=== PATIENT | female | born 1940 | race Caucasian/White ===

== ENCOUNTER 2016-09-22 18:21 | Inpatient (IN) | payer MEDICARE, OTHER ==
[~2016-09-22] VITALS: Ht 170.2 cm; Wt 61.2 kg
[~2016-09-22 18:21] MED LIST: ADVAIR 250/501 DISK; CHOLESTROL; KEFLEX500 MG PO; LIPITOR10 MG PO; LUMIGAN 0.01%2.5 ML EACH EYE; VENTOLIN HFA18 GM INH; VITAMIN E400 UNI2 PO
[2016-09-22 19:00] VITALS: BP 150/90
[2016-09-22 19:18] LABS: BASOPHILS 0.2 % (0-2); EOSINOPHILS 2.8 % (0-7); HEMATOCRIT 43.2 % (36.0-48.0); HEMOGLOBIN 14.5 g/dL (12-16); IMMATURE GRANULOCYTES 0.2 % (0-5); LYMPHOCYTES 29.5 % (15-50); MCH 32.8 pg (26.0-34.0); MCHC 33.6 g/dL (31.0-37.0); MCV 97.7 fL (80.0-100.0); MONOCYTES 9.4 % (2-11); NEUTROPHILS 57.9 % (40-80); PLATELET COUNT 188 10x3/uL (130-400); RBC 4.42 10x6/uL (4.00-5.40); RDW 12.7 % (11.5-14.5)
[2016-09-22] MEDS ORDERED: TIMOPTIC 0.5 % O5 ML EACH EYE (19:34)
[2016-09-22] MEDS ORDERED: POTASSIUM99 M1 PO (19:37)
[2016-09-22] MEDS ORDERED: [UNRECOGNIZED DRUG - OTHER] (19:39)
[2016-09-22 19:43] VITALS: BP 150/90; BMI 18.8
--- NOTE | 2016-09-22 19:53 | NUR ---
DR LOPEZ NOTIFIED OF PT UPDATE: THIRD DEGREE HEART BLOCK WITH RATE 39-45. BP 150/90. ASYMPTOMATIC WHILE LYING IN BED, GETS DIZZY UPON STANDING. INSTRUCTED PT ON STRICT BEDREST.
[2016-09-22 20:16] LABS: ALBUMIN 3.3 g/dL (3.4-5.0); ALKALINE PHOSPHATASE 79 U/L (46-116); ALT (SGPT) 34 U/L (10-68); BILIRUBIN - TOTAL 0.19 mg/dL (0.2-1.3); CALC OSMOLALITY 283 mosm/kg (275-300); CARBON DIOXIDE 29.7 mmol/L (21.0-32.0); CHLORIDE - SERUM 105 mmol/L (98-107); CREATINE KINASE 35 UL (21-215); CREATININE - SERUM 1.4 mg/dL (0.6-1.3); GLUCOSE 94 mg/dL (74-106); PROTEIN - SERUM 6.5 g/dL (6.4-8.2); SODIUM 141 mmol/L (136-145); T4 THYROXIN - FREE 1.07 ng/dL (0.76-1.46); UREA NITROGEN 21 mg/dL (7-18); eGFR NON AFRICAN AMERICAN 39 mL/min (90-120)
[2016-09-22 20:18] LABS: TROPONIN-I < 0.017 ng/mL (0.000-0.060)
[2016-09-23] VITALS: BP 135/61
--- NOTE | 2016-09-23 00:05 | NUR ---
MULTISKILL OPERATOR AT BEDSIDE FOR VS. NEEDS ADDRESSED AT THIS TIME. CALL LIGHT IN REACH. WILL CONT TO MONITOR.
[2016-09-23 01:56] LABS: CKMB 0.9 U/L (0.0-3.6); CREATINE KINASE 28 UL (21-215)
[2016-09-23 01:58] LABS: TROPONIN-I < 0.017 ng/mL (0.000-0.060)
[2016-09-23 05:38] VITALS: BP 131/51
[2016-09-23 07:20] LABS: CKMB 0.7 U/L (0.0-3.6); CREATINE KINASE 45 UL (21-215); TROPONIN-I < 0.017 ng/mL (0.000-0.060)
--- NOTE | 2016-09-23 08:18 | HP ---
PATIENT: CONSTANCE MOHAMUD MEDICAL RECORD: [id number] ACCOUNT: [id number] LOCATION:[address] : 41 ADMISSION DATE: 09/22/16 HISTORY AND PHYSICAL EXAMINATION Admission History and Physical DATE OF ADMISSION: 09/22/2016 CHIEF COMPLAINT: Dizziness. HISTORY OF PRESENT ILLNESS: This 76-year-old female, has not been in my office and has not seen me in almost 2 years. She did see my nurse practitioner once last November. She comes in with acute onset of dizziness that she states has been going on for the last couple of days. If she siting still, she is okay, but if she gets up to try to move, she becomes dizzy and unsteady on her feet. She has not fallen, but she is using handrails everywhere she goes. A friend of hers who is a nurse came by to check on her, check her vital signs. Her blood pressure was doing okay, but her heart rates were down to 30s. When I saw her in the office, her heart rate was about 40. She is not on any medicine for blood pressure. She is on 2 eyedrops, the last of which was Timolol, which she states was started about the middle of May this year. With her symptomatic bradycardia, admitted her in to [place] for further evaluation and cardiac consultation. PAST MEDICAL HISTORY AND PAST SURGICAL HISTORY: She has a history of COPD, but on no medicines for that. She has glaucoma. She has history of hyperlipidemia. She has had some lumbar disc disease in the past. She had back surgery by Dr. Andujar back in the early . ALLERGIES: CLINDAMYCIN, LESCOL, PENICILLIN AND PRAVASTATIN. CURRENT MEDICATIONS: Includes: Timolol 0.5% ophthalmic drops 1 drop at each eye once a day, Lumigan 0.01% eyedrops 1 drop in each eye at bedtime. She takes an aspirin and vitamin E, qhkz-psk-earagmv potassium pills daily. SOCIAL HISTORY: She is and retired. HABITS: She is a current everyday smoker. She does use not use alcohol. She is retired. FAMILY HISTORY: Father at 42 of ID. Mother with history, she too is , and she had a history of coronary artery disease. REVIEW OF SYSTEMS: GENERAL: No major weight changes. HEENT: No particular sinus or allergy problems. RESPIRATORY: She is a long time smoker and has COPD, but on no medicines for it. CARDIAC: No history of chest pain, palpitations, bradycardia. GASTROINTESTINAL: She has had a few episodes of heartburn. GENITOURINARY: No significant problems there. MUSCULOSKELETAL: Few joint aches and pains. NEUROLOGIC: No seizures or migraine headaches. PSYCHIATRIC: Denies depression or melancholia. HISTORY AND PHYSICAL [id number] CONSTANCE MOHAMUD PHYSICAL EXAMINATION: VITAL SIGNS: In my office, basically her heart rate was around 40. Currently, temperature is 97.3, pulse 45, respirations 16, blood pressure 150/90 and O2 sat 94%. She does not appear in acute distress. HEENT: Grossly within normal limits. NECK: Supple. No JVD or bruits. HEART: Bradycardia, without murmur. LUNGS: Fairly clear. ABDOMEN: Soft. EXTREMITIES: No edema. When she got up to walk in my office, she would become dizzy. LABORATORY DATA: Tonight, CBC is essentially normal. Comprehensive metabolic panel is okay except BUN and creatinine are mildly elevated at 21 and 1.4 respectively. Total bilirubin is low at 0.19, AST is high at 63, ALT normal at 34. Cardiac enzymes, first set is negative. TSH 3.00. Free T4 of 1.07. IMAGING: Chest x-ray is done showing no acute findings. ASSESSMENT: Symptomatic bradycardia. PLAN: This could be from timolol eyedrops that was started about 3 months ago. We will hold those drops right now. She is placed on telemetry. I discussed the case with Dr. Han and he will see her in consultation. Other tests and procedures as warranted. TRANSINT:[id number] Voice Confirmation ID: [id number] DOCUMENT ID: [id number] SABINE HUTSON MD at 0818 CC: [id number] DICTATION DATE: 09/22/162214 RN ENT: 09/23/16 0130 ADM IN [address] [id number] [place] [address]
--- NOTE | 2016-09-23 09:46 | NUR ---
ALLYSON SHELTON PLACED PT BILAT SCDS ON, PATENT
[2016-09-23 12:00] VITALS: BP 142/68
[2016-09-23 14:35] VITALS: Ht 170.2 cm; Wt 61.2 kg
--- NOTE | 2016-09-23 15:01 | NUR ---
TELEMETRY SB. CALL LIGHT IN REACH. WILL CONT. TO MONITOR NEEDS.
[2016-09-23 16:28] VITALS: BP 150/62
--- NOTE | 2016-09-23 19:00 | NUR ---
INITIAL ROUNDS MADE. PT SITTING UP IN BED WATCHING TV. NO NEEDS OR C/O VOICED AT THIS TIME. CALL LIGHT IN REACH. WILL CONT TO MONITOR.
[2016-09-23 20:00] VITALS: BP 154/62
[2016-09-24] VITALS: BP 155/45
[2016-09-24 04:00] VITALS: BP 122/43
--- NOTE | 2016-09-24 04:39 | NUR ---
CODE ENFORCEMENT SUPERVISOR AT BEDSIDE FOR VS. NEEDS ADDRESSED AT THIS TIME. CALL LIGHT IN REACH. WILL CONT TO MONITOR.
[2016-09-24 08:33] VITALS: BP 152/60
--- NOTE | 2016-09-24 09:55 | NUR ---
Patient Name: CONSTANCE MOHAMUD Admission Status: Elective Accout number: [id number] Admission Date: 09-22-2016 : 1940 Admission Diagnosis:DIZZINESS AND GIDDINESS Attending: NKECHI Current LOS: 2 Anticipated DC Date: 09-24-2016 Planned Disposition: Home Primary Insurance: MEDICARE A & B Discharge Planning Comments: * Is the patient Alert and Oriented? Yes 0 * How many steps to enter\exit or inside your home? 3 0 * PCP DR. HUTSON 0 * Pharmacy BUDGET 0 * Preadmission Environment Home Alone 0 * ADLs Independent 0 * Equipment Cane Walker Wheelchair 0 * Other Equipment NO MEDICAL EQUIPMENT PROVIDER PREFERENCE 0 * List name and contact numbers for known caregivers / representatives who currently or will assist patient after discharge: JUN GANDHI, FRIEND, 0 * Community resources currently utilized None 0 * Please name any agencies selected above. NONE 0 * Additional services required to return to the preadmission environment? No 0 * Can the patient safely return to the preadmission environment? Yes 0 * Has this patient been hospitalized within the prior 30 days at any hospital? No 0 CM MET WITH PT IN ROOM TO DISCUSS DISCHARGE PLANNING AND NEEDS. PT REPORTS LIVING AT HOME INDEPENDENTLY AND ALONE. PT HAS CANE, WALKER AND WHEELCHAIR THAT SHE HAS FROM HER SPOUSE AND NO MEDICAL EQUIPMENT PROVIDER PREFERENCE. PT HAS NO OUTSIDE SERVICES ASSISTING IN THE HOME. CM DISCUSSED AVAILABILITY OF HOME HEALTH, REHAB SERVICES AND MEDICAL EQUIPMENT. PT DENIES DISCHARGE NEEDS, REPORTS HER FRIEND WILL PICK HER UP FOR DISCHARGE HOME TODAY. IMPORTANT MESSAGE FROM MEDICARE PROVIDED AND EXPLAINED. Arc And Gas Welder: Soy Acosta
--- NOTE | 2016-09-24 10:33 | NUR ---
IV AND TELEMETRY DCD. DC PLANS GIVEN. UNDERSTANDING VOICED. ESCORTED TO CAR BY W/C.
== END 2016-09-24 10:51 | disposition home or self-care (01) | DRG 310 ==
LOC: D.M2 18:21
PROVIDERS: ADMIT Family Medicine
DX: I44.1 Atrioventricular block, second degree (principal); R00.1 Bradycardia, unspecified; T44.7X5A Adverse effect of beta-adrenoreceptor antagonists, initial encounter; E78.5 Hyperlipidemia, unspecified; H40.9 Unspecified glaucoma; J44.9 Chronic obstructive pulmonary disease, unspecified; Z72.0 Tobacco use; R55 Syncope and collapse

== ENCOUNTER 2016-10-20 09:59 | Outpatient (CLI) | payer MEDICARE, OTHER ==
[~2016-10-20] VITALS: Ht 170.2 cm; Wt 58.0 kg
--- NOTE | ~2016-10-20 | HEMODYNAMI ---
PATIENT:CONSTANCE MOHAMUD MEDICAL RECORD: [id number] : 42 LOCATION:DDARRION ADMISSION DATE: 10/20/16 Generatedon:10/20/201614:23 Patient name: CONSTANCE MOHAMUD Patient #: [id number] SSN: [id number] : 1940 Date of study: 10/20/2016 Page: Of Hemodynamic Procedure Report Patient Data Patient Demographics Procedure consent was obtained First Name: CONSTANCE Gender: Female Last Name: CADE : 1940 [facility] Initial: ESTUARDO Age: 76 year(s) Patient #: [id number] Race: SSN: [id number] Additional ID: [id number] Contact details [address]: [address] [place] [address] State: [place] City: [place] Zip code: [address] Past Medical History Allergies Allergen Reaction Date Comments Reported Other allergy 10/20/2016 PCN, Clindamycin, Pravastatin, Lescol Admission Admission Data Admission Date: 10/20/2016 Admission Time: 9:59 Lab Results Lab Result Date: 10/20/2016 Lab Result Time: 0:00 Biochemistry Name Units Result Min Max BUN mg/dl 15 --(--*-)-- 7 18 Creatinine mg/dl 1.5 --(----)-* 0.6 1.3 CBC Name Units Result Min Max Hemoglobin g/dl 15.1 --(-*--)-- 13.5 17.5 Procedure Procedure Types Cath Procedure Diagnostic Procedure PPM/ICD PPM Dual Implant Miscellaneous Procedures Moderate Sedation up to 15 minutes Procedure Description Procedure Date Procedure Date: 10/20/2016 Procedure Start Time: 13:25 Procedure End Time: 14:19 Procedure Staff Name Function Rohan Melara MD Performing Physician Vinay Martinez MD Assisting physician Ange Richard RT Scrub Martin Chowdhury RN Nurse Cat Andujar RT Monitor Indication Bradycardia Procedure Data Cath Procedure Fluoroscopy Diagnostic fluoroscopy Total fluoroscopy Time: 3.6 time: 3.6 min min Diagnostic fluoroscopy Total fluoroscopy dose: dose: 21.45 mGy 21.45 mGy Estimated blood loss: 10 ml Procedure Complications No complications Procedure Medications Medication Administration Route Dosage Oxygen 2 l/min Lidocaine 1% with added to field 20 ml Epi Bupivacaine 0.5% 10 ml Vancomycin I.V.P.B 1 g Vancomycin Topical 1 g Irrigation Versed I.V. 1 mg Fentanyl I.V. 50 mcg Versed I.V. 1 mg Fentanyl I.V. 50 mcg Hemodynamics Rest HGB: 15.1 (g/dl) Heart Rate: 47 (bpm) Snapshots Pre Cath Intra NCS Post Cath Vital Signs Time Heart Resp SPO2 NIBP (mmHg) Rhythm Pain Sedation Rate (ipm) (%) Status Level (bpm) 12:48:38 52 22 96 192/67(116) NSR 0 (11) 10(A) , No pain 12:53:06 52 25 96 179/78(103) NSR 0 (11) 10(A) , No pain 12:57:31 52 20 94 166/72(123) NSR 0 (11) 10(A) , No pain 13:02:48 52 19 95 152/56(88) NSR 0 (11) 10(A) , No pain 13:07:14 53 16 96 146/61(91) NSR 0 (11) 10(A) , No pain 13:11:30 57 19 96 144/64(106) NSR 0 (11) 10(A) , No pain 13:15:52 55 17 97 137/62(102) NSR 0 (11) 10(A) , No pain 13:20:12 58 16 96 131/58(92) NSR 0 (11) 10(A) , No pain 13:27:58 69 18 95 134/56(89) NSR 0 (11) 10(A) , No pain 13:32:11 46 15 93 126/53(112) NSR 0 (11) 10(A) , No pain 13:36:29 48 15 95 124/58(110) NSR 0 (11) 10(A) , No pain 13:40:46 57 18 96 126/58(118) NSR 0 (11) 10(A) , No pain 13:45:02 60 15 99 129/59(88) NSR 0 (11) 10(A) , No pain 13:49:59 63 15 98 137/63(92) NSR 0 (11) 10(A) , No pain 13:54:17 71 16 100 142/69(103) NSR 0 (11) 10(A) , No pain 13:58:41 70 16 100 151/58(110) NSR 0 (11) 10(A) , No pain 14:03:07 73 19 100 143/58(95) NSR 0 (11) 10(A) , No pain 14:07:29 63 21 100 147/62(111) NSR 0 (11) 10(A) , No pain 14:11:52 73 19 100 154/65(98) NSR 0 (11) 10(A) , No pain 14:16:14 72 16 99 150/63(91) NSR 0 (11) 10(A) , No pain Medications Time Medication Route Dose Verified Delivered Reason Notes Effectiv eness by by 12:48:59 Oxygen NC- prn 2 Rohan Moodyie used for for sat l/min [facility] Alex[facility] Chowdhury headwaitress below MD 92 12:49:06 Lidocaine added 20 ml Rohan Madrigal for local 1% with Epi to [facility] anesthetic field MD LYNN 12:49:24 Bupivacaine on 10 ml Rohan Rohan for local 0.5% field [facility] John anesthetic MD LYNN 12:49:32 Vancomycin I.V.P.B 1 g Rohan Uriosteguiie Per [facility] Alex[facility] Chowdhury RN physician 13:20:14 Vancomycin Topical 1 g Rohan Uriosteguiie used for Irrigation [facility] Alexey Chowdhury RN procedure 13:25:21 Versed I.V. 1 mg Rohan [address]ie for [facility] Alexey Chowdhury RN sedation 13:25:27 Fentanyl I.V. 50 Rohan Uriosteg[address]ie for mcg [facility] Alexey Chowdhury RN sedation 13:30:15 Versed I.V. 1 mg Rohan Uriosteguiie for [facility] Alex[facility] Chowdhury RN sedation 13:30:18 Fentanyl I.V. 50 Rohan [address] for m[address] [facility] Alexey Chowdhury RN sedation Procedure Log Time Note 12:27:40 Informed consent obtained and on chart 12:27:47 Diagnostic Cath Status : Elective 12:28:20 Indication : Bradycardia 12:28:24 Martin Chowdhury RN sent for patient. Start room use. 12:28:25 Time tracking: Regular hours 12::30 Plan of Care:Hemodynamics will remain stable., Cardiac rhythm will remain stable., Comfort level will be maintained., Respiratory function will remain adequate., Patient/ family verbilizes understanding of procedure., Procedure tolerated without complication., Recovers from procedure without complications.. 12:30:32 Lab Result : BUN 15 mg/dl 12::32 Lab Result : Hemoglobin 15.1 g/dl 12::32 Lab Result : Creatinine 1.5 mg/dl 12:41:27 Patient received from Pre/Post Procedure Room to CCL 3 Alert and oriented. Tansferred to table in Supine position. 12:41:28 Warm blankets applied, and taylor hugger turned on for patient comfort. 12::28 Correct patient and procedure confirmed by team. 12:41:30 ECG and BP/O2 sat monitors applied to patient. 12:46:06 Vital chart was started 12:46:48 H&P Date Dictated: 10/15/2016 Within 30 days and on chart., H&P Addendum completed by physician on day of procedure. (MUST COMPLETE FOR ALL OUTPATIENTS). 12:46:49 Pre-procedure instructions explained to patient. 12:46:53 Family in waiting room. 12:46:54 Patient NPO since Midnight. 12:47:27 Patient allergic to Other allergyPCN, Clindamycin, Pravastatin, Lescol 12:47:31 Baseline sample Acquired. 12:47:44 Rhythm: sinus rhythm 12:47:47 Is the patient allergic to Iodine/contrast media? No. 12:47:55 Is patient on blood thinner?No 12:47:59 Patient diabetic? No. 12:48:08 Snore? Yes 12:48:10 Sleep apnea? No 12:48:18 Dentures? Yes in tight 12:48:39 IV patent on arrival in left forearm with 0.9% NaCl at KVO. 12:48:50 Lab results completed and on chart. 12:48:57 Left chest area was prepped with chlora-prep and draped in sterile fashion 12:48:59 Oxygen 2 l/min NC- prn for sat below 92 was administered by Martin Chowdhury RN; used for procedure; 12:48:59 Alarms reviewed by R. N. 12:48:59 Sharps counted by scrub and verified by R.N. 12:49:01 Physician paged 12:49:06 Lidocaine 1% with Epi 20 ml added to field was administered by Rohan Melara MD; for local anesthetic; 12:49:24 Bupivacaine 0.5% 10 ml on field was administered by Rohan Melara MD; for local anesthetic; 12:49:32 Vancomycin 1 g I.V.P.B was administered by Martin Chowdhury RN; Per physician; 13:02:10 Use device set Pacemaker Set 13:03:04 Medtronic enrollment representative Jered present for procedure. 13:03:13 Grounding pad site Left thigh. 13:03:19 Grounding pad site free from injury. 13:03:45 Pre sharps counted by scrub and verified by RN: Sutures: 14 Sponges: 5 Stick needles: 1 Skin needles: 1 Blade: 1 Cautery: 1 13:04:29 Mepilex Dressing opened to sterile field. 13:04:30 2.0 Ticron Multipack opened to sterile field. 13:04:40 3.0 Vicryl Multipack [id number] opened to sterile field. 13:04:41 5.0 Monocryl PS2 [id number] opened to sterile field. 13:04:43 Immobilizer Sling Medium opened to sterile field. 13:07:56 7Fr Safe Sheath opened to sterile field. 13:07:57 7Fr Safe Sheath opened to sterile field. 13:20:14 Vancomycin Irrigation 1 g Topical was administered by Martin Chowdhury RN; used for procedure; 13:22:30 Physician arrived 13:24:40 --------ALL STOP TIME OUT------ 13:24:42 Final Timeout: patient, procedure, and site verified with staff and physician. All members of the team are in agreement. 13:25:12 Left chest site verified by team. 13:25:18 Physical assessment completed. ASA score P 2 - A patient with mild systemic disease as per Vinay Martinez MD. 13:25:21 Versed 1 mg I.V. was administered by Martin Chowdhury RN; for sedation; 13:25:22 Sedation plan: IV Moderate Sedation Versed, Fentanyl 13:25:27 Fentanyl 50 mcg I.V. was administered by Martin Chowdhury RN; for sedation; 13:25:36 Procedure started. 13:25:36 Full Disclosure recording started 13:25:46 Lidocaine 2% to left subclavicular area by Vinay Martinez MD. 13:26:10 Incision made to left subclavicular area. 13:26:57 Generator pocket made/opened. 13:30:15 Versed 1 mg I.V. was administered by Martin Chowdhury RN; for sedation; 13:30:18 Fentanyl 50 mcg I.V. was administered by Martin Chowdhury RN; for sedation; 13:32:52 Left subclavian vein accessed with 7Fr Safe Sheath. 13:32:57 Ventricular lead inserted and advanced. 13:40:40 Peel-a-way sheath was split and removed. 13:44:53 Left subclavian vein accessed with 7Fr Safe Sheath. 13:45:00 Atrial lead inserted and advanced. 13:48:33 Peel-a-way sheath was split and removed. 13:56:32 Ventricular lead was repositioned by dr. Melara 13:57:47 Ventricular lead attachment was completed with 2-0 silk. 13:58:15 Atrial lead attachment was completed with 2-0 silk. 13:59:47 PPM Dual was attached to lead(s) and inserted into pocket. 13:59:52 PPM Dual was inserted subcutaneously to left chest. 13:59:55 Device pocket was irrigated with Vancomycin. 14:00:18 Generator was sutured in place with 2-0 silk. 14:01:38 Medtronic 4074-52 PPM Lead opened to sterile field. 14:01:39 Medtronic 4574-45 PPM Lead opened to sterile field. 14:01:40 Medtronic Adapta PPM Dual Generator opened to sterile field. 14:02:57 Parameters-- Generator: Mode: AAIR<=>DDDR. Lower Rate: 60bpm. Upper Rate: 130bpm. 14:04:09 Parameters--Atrial P/R Wave: 4.8mV. Current: 1.2mA; Threshold: 1.2V; Impedence: 855OHMS. 14:05:46 Parameters--Ventricular P/R Wave: 8.2mV. Current: 1.2mA; Threshold: .5V; Impedence: 1254OHMS. 14:06:12 Subcutaneous closure was completed with 3-0 vicryl. 14:06:28 Skin closure was completed with 5-0 monocryl. 14:08:01 Lt Chest incision was dressed with Mepilex dressing. 14:14:19 Procedure ended.(Physican Out) 14:14:56 Fluoroscopy time 03.60 minutes. 14:15:07 Fluoroscopy dose: 21.45 mGy 14:15:07 Flurop Dose total: 21.45 14:15:10 Sharps counted by scrub and verified by R.N. 14:15:40 Insertion/operative site no bleeding no hematoma. 14:16:04 Post-op/insertion site Left Subclavian vein dressed using a Mepilex dressing. 14:16:14 Post Procedure Pulses reassessed and unchanged 14:16:20 Post-procedure physical assessment completed. ASA score P 2 - A patient with mild systemic disease as per Rohan Melara MD. 14:16:24 Post procedure rhythm: paced 14:16:26 Estimated blood loss: 10 ml 14:16:28 Post procedure instruction explained to patient.Patient verbalizes understanding. 14:16:47 Procedure type changed to Cath procedure, Diagnostic procedure, PPM/ICD, PPM Dual Implant, Miscellaneous Procedures, Moderate Sedation up to 15 minutes 14:16:48 Procedure and supply charges have been captured, reviewed, submitted and are correct. 14:19:08 Procedure Complication : No complications 14:19:12 Vital chart was stopped 14:19:14 See physician's report for complete and final results. 14:19:22 Report given to [facility]. 14:19:25 Patient transfered to [facility] with Bed. 14:19:28 Procedure ended. 14:19:28 Full Disclosure recording stopped 14:19:32 End room use (Document Last) Device Usage Item Name Manufacture Quantity Catalog Hospital Part Current Minimal Lot# / Number Charge Number Stock Stock Serial# Code Mepilex Cardinal 1 [id number] 889127 453017 579365 5 Dressing Health 2.0 Ticron Ethicon 9 [id number] 310419 63377 439213 5 Multipack 3.0 Vicryl Ethicon 1 [id number] 286891 225922 5 Multipack [id number] 5.0 Ethicon 1 [id number] 769176 836610 964300 5 Monocryl PS2 Y495G Immobilizer Cardinal 1 [id number] 451183 467302 196364 5 Sling Health Medium 7Fr Safe Microtek 2 SU7 [id number] 079453 [id number] 10 3[employer] Medtronic Medtronic 1 4074-52 620539 134627 5 4074-52 PPM [id number] Lead 04/17 Medtronic Medtronic 1 4574-45 102454 622825 5 4574-45 PPM [id number] Lead 02/02 Medtronic Medtronic 1 [id number] 388297 5 Adapta PPM [id number] Dual 03/19 Generator 01/01 Signature Audit [place] Stage Time Signature Unsigned Intra-Procedure 10/20/2016 Cat Andujar 2:23:15 PM RT(R) Signatures Monitor : Cat Andujar Signature : RT Date : Time : [address] [address]
[~2016-10-20 09:59] MED LIST changes: +POTASSIUM99 M1 PO; +TIMOPTIC 0.5 % O5 ML EACH EYE; +[UNRECOGNIZED DRUG - OTHER]
[2016-10-20 10:21] VITALS: BP 166/62; BMI 20.1
[2016-10-20 10:37] LABS: HEMATOCRIT 44.9 % (36.0-48.0); HEMOGLOBIN 15.1 g/dL (12-16); MCH 32.5 pg (26.0-34.0); MCHC 33.6 g/dL (31.0-37.0); MCV 96.8 fL (80.0-100.0); MEAN PLATELET VOLUME 11.3 fL (7.4-10.4); RBC 4.64 10x6/uL (4.00-5.40); RDW 12.6 % (11.5-14.5); WBC 8.7 10x3/uL (4.8-10.8)
[2016-10-20 10:41] LABS: ANION GAP 13.6 mmol/L (8-16); APTT 24.4 SECONDS (22.8-39.4); CALCIUM 9.8 mg/dL (8.5-10.1); CARBON DIOXIDE 26.3 mmol/L (21.0-32.0); CREATININE - SERUM 1.5 mg/dL (0.6-1.3); INR 0.91 (0.85-1.17); POTASSIUM - SERUM 3.9 mmol/L (3.5-5.1); PROTIME 12.1 SECONDS (11.6-15.0)
--- NOTE | 2016-10-20 14:58 | NUR ---
RECIEVED FROM PROBATION AGENT. VS WNL. LEFT CHEST DRSG CLEAN AND DRY. LEFT ARM IN SLING. CALL LIGHT IN REACH. WILL CONT. PLAN OF CARE.
[2016-10-20 15:00] VITALS: BP 121/79; Ht 170.2 cm; Wt 58.0 kg
[2016-10-20 16:28] VITALS: BP 121/79
--- NOTE | 2016-10-20 19:00 | NUR ---
INITIAL ROUNDS MADE. PT SITTING UP IN BED WATCHING TV. DENIES NEEDS OR C/O AT THIS TIME. LEFT CHEST WALL PM SITE CDI. SLING IN PLACE. PT C/O DISCOMFORT TO SITE, ICE PACK PLACED AT THIS TIME.
[2016-10-20 21:46] VITALS: BP 154/56
--- NOTE | 2016-10-20 22:42 | OP ---
PATIENT NAME: CONSTANCE MOHAMUD MEDICAL RECORD: [id number] :[birth year] LOCATION:D. D.2118 ADMISSION DATE: SURGEON: GHISLAINE PÉREZ MD DATE OF OPERATION: 10/20/2016 SURGEON: Ghislaine Pérez MD PREOPERATIVE DIAGNOSIS: Arrhythmia. POSTOPERATIVE DIAGNOSIS: Arrhythmia. PROCEDURE PERFORMED: 1. Insertion of a pacemaker on the left chest wall. 2. Immediate interpretation of fluoroscopy. ANESTHESIA: Total intravenous anesthesia. COMPLICATIONS: None. SPECIMENS: None. Case was clean. OPERATIVE COURSE: After consent was obtained, the patient was placed on the fluoroscopy table on the cardiac microbiology lab analyst. A 25 cc of local anesthetic were injected in the left chest wall. Skin incisions was made with a 15 blade scalpel. Dissection continued to the level of the pectoralis fascia using electrocautery. A generous pocket was created using combination of blunt dissection and electrocautery. The left subclavian vein was cannulated on the first pass. Under direct fluoroscopy, a guidewire was advanced at the atriocaval junction. The needle was removed. The dilator and breakaway sheath were passed over the wire under fluoroscopy. The dilator and wire were removed. At this time, Dr. Melara placed the ventricular lead, please see his procedure note. Once it was in placed, It was secured to the pectoralis fascia using 3-0 Ti-Cron suture. A second needle stick was then performed. The left subclavian vein was cannulated the second time. In the fluoroscopy, a wire was placed through the needle and advanced to the atriocaval junction. The needle was removed. The dilator and breakaway sheath were passed over the wire in a standard Seldinger fashion. The dilator and wire were removed. The atrial lead was then placed by Dr. Melara. Please see procedure note. The lead was secured to the pectoralis fascia using 3-0 Ti-Cron suture. Next, the wires were wrapped and secured to the pectoralis fascia. The pacemaker placed in the subcutaneous pocket. The subcutaneous tissue was closed with 3-0 Vicryl sutures. Skin was closed with 4-0 Monocryl, Mastisol and Steri-Strips. At the end of the case, all needle and instruments were correct. No complications occurred. The patient was transferred to recovery room in satisfactory condition. TRANSINT:[id number] Voice Confirmation ID: [id number] DOCUMENT ID: [id number] OPERATIVE REPORT [id number] CONSTANCE MOHAMUD,GHISLAINE Castrejon MD at 2242 CC: [id number] DICTATION DATE: 10/20/161422 AGRICULTURAL CROP FARM MANAGER: 10/20/169 REG [facility] [address] [id number]
[2016-10-21 01:37] VITALS: BP 156/62
[2016-10-21 05:32] VITALS: BP 129/53
[2016-10-21 09:28] VITALS: BP 150/51
--- NOTE | 2016-10-21 09:47 | OP ---
PATIENT NAME: GWENDOLYN HANCOCK MEDICAL RECORD: [id number] :42 LOCATION:D.M2 D.2118 ADMISSION DATE: SURGEON: MILTON DUFFY MD DATE OF OPERATION: 10/20/2016 PROCEDURE: Lead portion of permanent pacemaker placement. INDICATION: Complete heart block. DESCRIPTION OF PROCEDURE: After left subclavian was cannulated via the modified Seldinger technique via Dr. Martinez, first under fluoroscopic guidance, I placed the RV lead in RV apex. Next, after adequate R waves and thresholds were obtained under fluoroscopic guidance, I then placed the right atrial lead in the right atrial appendage without difficulty. After adequate thresholds and P waves were obtained, the lead was attached to appropriate poles of the generator and the pocket was closed via Dr. Martinez. IMPRESSION: Successful lead portion of permanent pacemaker placement on Ms. Gwendolyn Hancock. COMPLICATIONS: None. DISPOSITION: To the floor, stable. ESTIMATED BLOOD LOSS: Minimal. TRANSINT:[id number] Voice Confirmation ID: [id number] DOCUMENT ID: [id number] MILTON DUFFY MD at 0947 CC: [id number] DICTATION DATE: 10/20/16 1404 SMASHER: 10/20/16 2203 REG [facility] [address] [place] [address]
--- NOTE | 2016-10-21 10:21 | NUR ---
IV AND TELEMETRY DCD. DC PLANS GIVEN. UNDERSTANDING VOICED. ESCORTED TO CAR BY W/C.
--- NOTE | 2016-10-23 14:39 | DS ---
PATIENT:CONSTANCE MOHAMUD :42 MEDICAL RECORD: [id number] DISCHARGE SUMMARY ADMISSION DATE: 10/20/16 DISCHARGE DATE: 10/21/16 PROBLEM LIST: Mobitz II heart block, status post permanent pacemaker placement. BRIEF HISTORY AND HOSPITAL COURSE: Admitted as an outpatient for permanent pacemaker placement, surgeon was Dr. Martinez, network operations manager was [facility]. Did require postoperative interrogation, threshold with good interrogation next day. Discharged home in good condition. FOLLOWUP: Follow up in clinic in one month. ACTIVITIES: As tolerated, sling for 2 weeks. DIET: AHA diet. TRANSINT:[id number] Voice Confirmation ID: [id number] DOCUMENT ID: [id number] MILTON DUFFY MD at 1439 CC: [id number] DICTATION DATE: 10/21/16921 GRAPPLE SKIDDER OPERATOR: 10/22/16 0138 DEP CLI 10/21/[address] [address]
== END 2016-10-21 10:23 | disposition home or self-care (01) ==
LOC: D.CATH 09:59 → D.M2 14:53 → D.CATH 10-21 10:23
PROVIDERS: Internal Medicine Interventional Cardiology
DX: I44.2 Atrioventricular block, complete (principal)

== ENCOUNTER 2018-05-31 09:17 | Outpatient (CLI) | payer MEDICARE, BC ==
[~2018-05-31] VITALS: Ht 170.2 cm; Wt 53.6 kg
--- NOTE | ~2018-05-31 | HEMODYNAMI ---
PATIENT:CONSTANCE MOHAMUD MEDICAL RECORD: [id number] : 42 [id number] ADMISSION DATE: 05/31/18 Generatedon:05/31/201812:41 Patient name: CONSTANCE MOHAMUD Patient #: [id number] SSN: [id number] : 1940 Date of study: 05/31/2018 Page: Of Hemodynamic Procedure Report Patient Data Patient Demographics Procedure consent was obtained First Name: CONSTANCE Gender: Female Last Name: CADE : 1940 [facility] Initial: ESTUARDO Age: 78 year(s) Patient #: [id number] Race: SSN: [id number] Additional ID: [id number] Contact details Address: [address] [place] [address] State: [place] City: [place] Zip code: [address] Past Medical History Allergies Allergen Reaction Date Comments Reported Other allergy 10/20/2016 PCN, Clindamycin, Pravastatin, Lescol Admission Admission Data Admission Date: 05/31/2018 Admission Time: 9:17 Lab Results Lab Result Date: 05/31/2018 Lab Result Time: 0:00 Biochemistry Name Units Result Min Max BUN mg/dl 14 --(--*-)-- 7 18 Creatinine mg/dl 1.6 --(----)-* 0.6 1.3 Glucose mg/dl 89 --(-*--)-- 74 106 Troponin l ng/ml 0.017 --(-*--)-- 0 0.06 CBC Name Units Result Min Max Hematocrit % 41.3 -*(----)-- 42 54 Hemoglobin g/dl 13.8 --(*---)-- 13.5 17.5 Platelets 10^3/l 172 --(*---)-- 130 400 WBC 10^3/l 7.5 --(-*--)-- 4.8 10.8 Procedure Procedure Types Cath Procedure Diagnostic Procedure [facility] w/Coronaries PCI Procedure Coronary Stent Coronary Stent Initial x2 Procedure Description Procedure Date Procedure Date: 05/31/2018 Procedure Start Time: 12:23 Procedure End Time: 12:41 Procedure Staff Name Function Oswaldo Peterson MD Performing Physician Ange Richard RT Scrub Mary Sylvester RN Nurse Magdaleno Marc RN Patrol Community Service Officer Lyndsey Albarado RT Monitor Procedure Data Cath Procedure Fluoroscopy Diagnostic fluoroscopy Total fluoroscopy Time: 3.7 time: 3.7 min min Diagnostic fluoroscopy Total fluoroscopy dose: 168 dose: 168 mGy mGy Contrast Material Contrast Material Type Amount (ml) Isovue 300 101 Entry Location Entry Primary Successful Side Size Upsize Upsize Entry Closure Succes sful Closure Location (Fr) 1 (Fr) 2 (Fr) Remarks Device Remarks Radial Right 6 Fr artery Short Estimated blood loss: 10 ml Diagnostic catheters Device Type Used For End Catheter Placement DIAGNOSTIC Byron 110cm 5 Procedure Fr catheter ([id number]) Procedure Complications No complications Procedure Medications Medication Administration Route Dosage 0.9% NaCl I.V. 100 ml/hr Oxygen etCO2 Nasal cannula 2 l/min Lidocaine 2% added to field 20 Heparin Flush Bag added to field 2 bags (1000units/500ml NS) Radial Cocktail added to field 1 syringe (Verapomil 2mg/Nitro 400mcg/Heparin 1500units) Versed I.V. 2 mg Fentanyl I.V. 50 mcg Heparin Bolus I.V. 4000 units Integrilin (Bolus I.V. 5 ml 2mg/ml) Versed I.V. 1 mg Fentanyl I.V. 25 mcg Hemodynamics Rest HGB: 13.8 (g/dl) Heart Rate: 74 (bpm) Snapshots Pre Cath Intra NCS Post Cath Vital Signs Time Heart Resp SPO2 etCO2 NIBP Rhythm Pain Sedation Rate (ipm) (%) (mmHg) (mmHg) Status Level (bpm) 12:05:24 74 20 98 26 123/62(87) NSR 0 (11) 10(A) , No pain 12:09:32 73 15 97 22.8 127/69(87) NSR 0 (11) 10(A) , No pain 12:13:41 71 13 97 24.3 133/65(98) NSR 0 (11) 10(A) , No pain 12:17:54 69 14 97 26.6 117/65(80) NSR 0 (11) 10(A) , No pain 12:22:01 69 13 96 25.8 122/62(91) NSR 0 (11) 9(A) , No pain 12:26:03 69 13 97 26.5 85/48(68) NSR 0 (11) 10(A) , No pain 12:31:04 69 11 98 28.8 105/51(78) NSR 0 (11) 9(A) , No pain 12:35:10 69 12 97 27.3 110/57(77) NSR 0 (11) 10(A) , No pain 12:39:18 69 12 96 28.8 118/52(82) NSR 0 (11) 10(A) , No pain Medications Time Medication Route Dose Verified Delivered Reason Not es Effectiveness by by 12:04:19 0.9% NaCl I.V. 100 Oswaldo Mary used for ml/hr Kristen Sylvester mechanical drawing teacher 12:04:26 Oxygen etCO2 2 l/min Oswaldo Mary used for Nasal Kristen Sylvester procedure cannula RN 12:04:33 Lidocaine 2% added 20ml Oswaldo Oswaldo for local to vial Kristen Peterson MD anesthetic field 12:04:38 Heparin Flush added 2 bags Oswaldo Oswaldo used for Bag to Kristen Peterson MD procedure (1000units/500ml field NS) 12:04:46 Radial Cocktail added 1 Oswaldo Oswaldo used for (Verapomil to syringe Kristen Peterson MD procedure 2mg/Nitro field 400mcg/Heparin 1500units) 12:22:21 Versed I.V. 2 mg Oswaldo Mary for sedation Kristen Sylvester RN 12:22:26 Fentanyl I.V. 50 mcg Oswaldo Mary for sedation Kristen Sylvester RN 12:27:30 Heparin Bolus I.V. 4000 Oswaldo Mary for bárbara ified units Kristen Sylvester anticoagulation with Dr. JANETT Peterson 12:27:38 Versed I.V. 1 mg Oswaldo Mary for sedation Kristen Sylvester RN 12:27:46 Fentanyl I.V. 25 mcg Oswaldo Mary for sedation Kristen Sylvester RN 12:29:44 Integrilin I.V. 5 ml Oswaldo Mary for was josephine (Bolus 2mg/ml) Kristen Sylvester anticoagulation 5mL sous chef kitchen manager Log Time Note 11:45:36 Magdaleno Marc RN sent for patient. Start room use. 11:52:58 Informed consent obtained and on chart 11:53:02 Diagnostic Cath Status : Urgent 11:54:03 Time tracking: Regular hours (M-F 7:00 - 5:00) 11:54:07 Plan of Care:Hemodynamics will remain stable., Cardiac rhythm will remain stable., Comfort level will be maintained., Respiratory function will remain adequate., Patient/ family verbilizes understanding of procedure., Procedure tolerated without complication., Recovers from procedure without complications.. 11:56:32 Patient received from ED to CCL 1 Alert and oriented. Tansferred to table in Supine position. 11:56:33 Warm blankets applied, and taylor hugger turned on for patient comfort. 11:56:33 Correct patient and procedure confirmed by team. 11:56:34 ECG and BP/O2 sat monitors applied to patient. 12:04:08 Vital chart was started 12:04:19 0.9% NaCl 100 ml/hr I.V. was administered by Mary Sylvester RN; used for procedure; 12:04:26 Oxygen 2 l/min etCO2 Nasal cannula was administered by Mary Sylvester RN; used for procedure; 12:04:33 Lidocaine 2% 20ml vial added to field was administered by Oswaldo Peterson MD; for local anesthetic; 12:04:38 Heparin Flush Bag (1000units/500ml NS) 2 bags added to field was administered by Oswaldo Peterson MD; used for procedure; 12:04:46 Radial Cocktail (Verapomil 2mg/Nitro 400mcg/Heparin 1500units) 1 syringe added to field was administered by Oswaldo Peterson MD; used for procedure; 12:05:51 Baseline sample Acquired. 12:06:26 Rhythm: paced 12:06:38 Pre-procedure instructions explained to patient. 12:06:45 Pre-op teaching completed and patient verbalized understanding. 12:06:51 Family unavailable. 12:06:57 Patient NPO since Midnight. 12:07:05 Is the patient allergic to Iodine/contrast media? No. 12:07:16 Is patient on blood thinner?Yes 12:07:23 ACC The patient was administered the following blood thiners within the last 24 hours: ACCPlavix 12:07:26 Patient diabetic? No. 12:07:36 Patient not . Patient is over age 55. 12:07:44 ----Pre-sedation anethsthesia assessment.---- 12:07:49 Previous problem with sedation/anesthesia? No ? 12:07:52 Snore? Yes 12:07:54 Sleep apnea? No 12:07:56 Deviated septum? No 12:07:58 Opens mouth fully? Yes 12:08:00 Sticks out tongue? Yes 12:08:03 Airway obstruction? No ? 12:08:14 Dentures? Yes in tight 12:11:43 Pre procedure: right dorsailis pedis pulse 1+ Palpable, but thready & weak; easily obliterated 12:12:01 Modified David's test Radial > 7 seconds. 12:12:08 Patient pain scale 0/10 ?. 12:12:30 IV patent on arrival in left forearm with 0.9% NaCl at 100ml/hr. 12:14:18 Lab results completed and on chart. 12:14:29 Right Radial & Right Groin area was prepped with chlora-prep and draped in sterile fashion 12:14:35 Alarms reviewed by R. N. 12:14:38 Sharps counted by scrub and verified by R.N. 12:20:33 Lab Result : Glucose 89 mg/dl 12:20:33 Lab Result : Creatinine 1.6 mg/dl 12:20:33 Lab Result : BUN 14 mg/dl 12:20:33 Lab Result : Hemoglobin 13.8 g/dl 12:20:33 Lab Result : Troponin l 0.017 ng/ml 12:20:33 Lab Result : WBC 7.5 10^3/l 12:20:33 Lab Result : Platelets 172 10^3/l 12:20:33 Lab Result : Hematocrit 41.3 % 12:21:31 --------ALL STOP TIME OUT------ 12:21:32 Final Timeout: patient, procedure, and site verified with staff and physician. All members of the team are in agreement. 12:21:35 Right Radial & Right Groin site verified by team. 12:21:39 Physical assessment completed. ASA score P 2 - A patient with mild systemic disease as per Oswaldo Peterson MD. 12:21:43 Sedation plan: IV Moderate Sedation Medication:Versed, Fentanyl 12:21:59 Use device set Radial Dx or PCI 12:22:00 ACIST Syringe (42964) opened to sterile field. 12:22: Medline Cath Pack ([id number]) opened to sterile field. 12:22:02 ACIST Hand Control (66385) opened to sterile field. 12:22:03 ACIST Manifold (89995) opened to sterile field. 12:22:03 Tegaderm 4 x 4 (1626W) opened to sterile field. 12:22:05 Bag Decanter (2002S) opened to sterile field. 12:22:06 DIAGNOSTIC WIRE .035 260cm J wire (771060) opened to sterile field. 12:22:07 MBrace Wrist Support (512047621) opened to sterile field. 12:22:08 SHEATH 6FR Slender (89-2339) opened to sterile field. 12:22:12 Zero performed for pressure channel P1 12:: Versed 2 mg I.V. was administered by Mary Sylvester RN; for sedation; 12:: Fentanyl 50 mcg I.V. was administered by Mary Sylvester RN; for sedation; 12::33 Procedure started. 12::33 Full Disclosure recording started 12::45 Local anesthetic to right radial artery with Lidocaine 2% by Oswaldo Peterson MD.INITIAL ACCESS ONLY 12:24:33 A 6 Fr Short sheath was inserted into the Right Radial artery 12:25:00 A DIAGNOSTIC Byron 110cm 5 Fr catheter (531561) was advanced over the wire and used for Procedure. 12::23 LV gram done using BELTRAN 12:: Injector settings: Ml/sec: 7, Volume: 15, 12:25:46 EF : 70 % 12::22 LCA angiography performed. 12:27:13 GUIDE 6FR AR 1.0 catheter ([id number]) opened to sterile field. 12:27:13 CHOICE PT Extra Support 182cm wire (2073360M3) opened to sterile field. 12:27:14 INFLATOR Merit BasixCompak (LW6772) opened to sterile field. 12:27:20 RCA angiography performed. 12:27:24 Catheter removed. 12:27:30 Heparin Bolus 4000 units I.V. was administered by Mary Sylvester RN; for anticoagulation; verified with Dr. Peterson 12:27:34 6 Fr AR 1 guide catheter was inserted over the wire 12::38 Versed 1 mg I.V. was administered by Mary Sylvester RN; for sedation; 12::46 Fentanyl 25 mcg I.V. was administered by Mary Sylvester RN; for sedation; 12::38 CHOICE ES 182 wire advanced. 12::41 Wire advanced across lesion. 12::44 Integrilin (Bolus 2mg/ml) 5 ml I.V. was administered by Mary Sylvester RN; for anticoagulation; wasted 5mL 12:31:17 Place stent Inflation Number: 1 A INTEGRITY RX 3.0 x 26 stent ([id number]) was prepped and advanced across the Mid RCA. The stent was deployed at 13 APURVA for 0:10 (min:sec). 12:31:40 Wire removed. 12:31:42 Guide catheter removed. 12:31:42 Stent catheter was removed intact over wire. 12:31:48 CHOICE PT Extra Support 182cm wire ([id number]) opened to sterile field. 12:31:53 GUIDE 6FR XBLAD 3.5 catheter ([id number]) opened to sterile field. 12:32:50 6 Fr XBLAD 3.5 guide catheter was inserted over the wire 12:33:40 CHOICE ES 182 wire advanced. 12:33:47 Wire advanced across lesion. 12:35:08 Place stent Inflation Number: 1 A INTEGRITY RX 2.25 x 22 stent ([id number]) was prepped and advanced across the Mid LAD. The stent was deployed at 15 APURVA for 0:10 (min:sec). 12:35:37 Stent catheter was removed intact over wire. 12:35:37 Wire removed. 12:35:38 Guide catheter removed. 12:36:30 TR BAND Standard ([id number]) opened to sterile field. 12:36:35 Procedure ended.(Physican Out) 12:38:48 Fluoroscopy time 03.70 minutes. 12:38:52 Fluoroscopy dose: 168 mGy 12:38:52 Flurop Dose total: 168 12:38:55 Contrast amount:Isovue 300 101ml. 12:38:57 Sharps counted by scrub and verified by R.N. 12:38:59 TR band inflated with 11cc of air. 12:39:03 Post-procedure physical assessment completed. ASA score P 2 - A patient with mild systemic disease as per Oswaldo Peterson MD. 12:39:06 Post procedure rhythm: paced 12:39:08 Estimated blood loss: 10 ml 12:39:29 Post procedure instruction explained to patient.Patient verbalizes understanding. 12:39:29 Patient needs reinforcement of post procedure teaching. 12:40:06 Procedure type changed to Cath procedure, Diagnostic procedure, LHC, LHC w/Coronaries, PCI procedure, Coronary Stent, Coronary Stent Initial x2 12:40:58 Procedure and supply charges have been captured, reviewed, submitted and are correct. 12:41:00 Procedure Complication : No complications 12:41:01 Vital chart was stopped 12:41:02 See physician's report for complete and final results. 12:41:05 Report given to Pre/Post Procedure Room. 12:41:07 Patient transfered to Pre/Post Procedure Room with Bed. 12:41:08 Procedure ended. 12:41:08 Full Disclosure recording stopped 12:41:14 End room use (Document Last) Intervention Summary Intervention Notes Time ActionType Lesion and Equipment Action# Pressure Duration Attributes Used 12:31:17 Place stent Mid RCA INTEGRITY RX 1 13 00:10 3.0 x 26 stent ([id number]) 12:35:08 Place stent Mid LAD INTEGRITY RX 1 15 00:10 2.25 x 22 stent ([id number]) Device Usage Item Name Manufacture Quantity Catalog Number Hospital Part Current Mini [facility] Lot# / Charge Number Stock Stock Serial# Code ACIST Acist 1 14782 261136 846579 137505 20 Syringe Medical (79714) Systems Inc Medline Cath Medline 1 [id number] 200041 89091 785674 5 Pack ([id number]) ACIST Hand Acist 1 66584 425059 769681 668612 5 Control Medical (63224) Systems Inc ACIST Acist 1 08909 133495 836281 603910 5 Manifold Medical (01649) Systems Inc Tegaderm 4 x 3M 1 1626W 730409 782807 723858 5 4 (1626W) Bag Decanter Microtek 1 2001S 644956 28450 186220 5 () Medical Inc. DIAGNOSTIC [facility] [place] 1 795481 630800 569705 710842 30 WIRE .035 260cm J wire (876308) MBrace Wrist Advanced 1 140-0250-00 284058 77891 337650 5 Support Vascular (174553007) Dynamics SHEATH 6FR Terumo 1 [id number] 059353 205346 308569 5 Slender (80-1060) DIAGNOSTIC Terumo 1 40-5013 733768 957982 455907 5 Byron 110cm 5 Fr catheter (897049) GUIDE 6FR AR Medtronic 1 [id number] 470328 47932 529223 1 1.0 catheter ([id number]) CHOICE PT Anderson 2 [id number] 473217 893458 493627 5 Extra Scientific Support 182cm wire (2099005P0) INFLATOR Merit 1 RO8492 887223 030280 809883 15 [facility] Medical BasixCompak (TU3238) INTEGRITY RX Medtronic 1 [id number] 583022 790398 787783 5 [id number] 3.0 x 26 stent ([id number]) GUIDE 6FR Cardinal 1 [id number] 234552 000654 076065 10 XBLAD 3.5 Health catheter (78601474) INTEGRITY RX Medtronic 1 [id number] 828647 869937 485772 5 [id number] 2.25 x 22 stent ([id number]) TR BAND Terumo 1 [id number] 487265 280703 301472 40 Standard ([id number]) Signature Audit [place] Stage Time Signature Unsigned Intra-Procedure 05/31/2018 Lyndsey Albarado 12:41:36 PM RT(R) Signatures Monitor : Lyndsey Albarado Signature : RT Date : Time : [facility] [address] [place] [address]
[2018-05-31 09:23] VITALS: Ht 170.2 cm; Wt 53.6 kg
[2018-05-31 09:45] LABS: BASOPHILS 0.3 % (0-2); EOSINOPHILS 1.2 % (0-7); HEMATOCRIT 41.3 % (36.0-48.0); HEMOGLOBIN 13.8 g/dL (12-16); IMMATURE GRANULOCYTES 0.1 % (0-5); MCH 32.4 pg (26.0-34.0); MCHC 33.4 g/dL (31.0-37.0); MCV 96.9 fL (80.0-100.0); MEAN PLATELET VOLUME 10.3 fL (7.4-10.4); MONOCYTES 8.8 % (2-11); NEUTROPHILS 67.6 % (40-80); PLATELET COUNT 172 10x3/uL (130-400); RBC 4.26 10x6/uL (4.00-5.40); RDW 12.6 % (11.5-14.5); WBC 7.5 10x3/uL (4.8-10.8)
[2018-05-31 10:04] LABS: ALBUMIN 3.1 g/dL (3.4-5.0); ALKALINE PHOSPHATASE 66 U/L (46-116); ALT (SGPT) 14 U/L (10-68); CALC OSMOLALITY 286 mosm/kg (275-300); CALCIUM 9.2 mg/dL (8.5-10.1); CARBON DIOXIDE 28.7 mmol/L (21.0-32.0); CHLORIDE - SERUM 106 mmol/L (98-107); CREATININE - SERUM 1.6 mg/dL (0.6-1.3); GLUCOSE 89 mg/dL (74-106); POTASSIUM - SERUM 3.4 mmol/L (3.5-5.1); PROTEIN - SERUM 6.8 g/dL (6.4-8.2); SODIUM 144 mmol/L (136-145); UREA NITROGEN 14 mg/dL (7-18); eGFR NON AFRICAN AMERICAN 33 mL/min (90-120)
[2018-05-31 10:14] LABS: CKMB 1.2 U/L (0.0-3.6); CREATINE KINASE 40 UL (21-215); TROPONIN-I < 0.017 ng/mL (0.000-0.060)
[2018-05-31 11:53] VITALS: BP 136/74
--- NOTE | 2018-05-31 12:50 | NUR ---
PT RECEIVED VIA STRETCHER FROM AUDIT ASSOCIATE FOR RECOVERY. PT ASLEEP BUT AROUSABLE TO VERBAL STIMULI. HR 70 PACED, BP 117/60, O2 ON AT 2L/NC O2 SAT 97%. RESP EVEN AND UNLABORED. DENIES PAIN. TR BAND TO R WRIST INTACT, IMMOBILIZER IN PLACE. DRESSING CDI NO BLEEDING OR SWELLING NOTED TO SITE. CALL LIGHT IN REACH.
[2018-05-31] MEDS ORDERED: PLAVIX75 MG PO (12:53)
--- NOTE | 2018-05-31 13:15 | NUR ---
PT SLEEPING QUIETLY, VSS. TR BAND IN PLACE NO BLEEDING OR SWELLING NOTED. DRESSING REMAINS CDI. CALL LIGHT IN REACH
--- NOTE | 2018-05-31 13:45 | NUR ---
PT SLEEPING W EYES CLOSED, RESP EVEN AND UNLABORED. VSS. TR BAND IN PLACE NO BLEEDING OR SWELLING NOTED. CALL LIGHT IN REACH.
--- NOTE | 2018-05-31 14:00 | NUR ---
DROWSY BUT VERBALLY AROUSABLE. DENIES CHEST PAIN OR NAUSEA. TR BAND IN PLACE, NO BLEEDING OR HEMATOMA NOTED. CAP REFILL BRISK AND EXTREMITY WARM AND PINK. CALL LIGHT IN REACH. HR PACED AT 70.
--- NOTE | 2018-05-31 14:30 | NUR ---
PT RESTING, C/O OF BEING COLD BEAR HUGGER PLACED ON. TR BAND IN PLACE, NO BLEEDING OR SWELLING TO SITE. COLA GIVEN PER REQUEST. CALL LIGHT IN REACH.
--- NOTE | 2018-05-31 15:00 | NUR ---
SANDWICH SERVED PER REQUEST, HOB ELEVATED. DENIES PAIN OR NAUSEA. HR PACED AT 70, BP 124/61. O2 SAT 97% ON 2L/NC. TR BAND IN PLACE, NO BLEEDING OR HEMATOMA NOTED. CALL LIGHT IN REACH. FRIEND CONTACTED TO PICK PT UP AT DISCHARGE
--- NOTE | 2018-05-31 15:30 | NUR ---
PT SITTING UP IN BED, TR BAND IN PLACE, NO BLEEDING OR HEMATOMA NOTED. CAP REFILL BRISK, EXTREMITY WARM AND PINK. HR PACED AT 70. BP 135/62. PT DENIES PAIN OR NAUSEA. CALL LIGHT IN REACH.
--- NOTE | 2018-05-31 15:50 | NUR ---
4CC AIR REMOVED FROM TR BAND, NO BLEEDING OR SWELLING NOTED.
--- NOTE | 2018-05-31 16:10 | NUR ---
3 ADD'L CC OF AIR REMOVED FROM TR BAND, NO BLEEDING OR SWELLING NOTED. VSS, PT DENIES NEEDS. CALL LIGHT IN REACH
--- NOTE | 2018-05-31 16:37 | NUR ---
IV DC'D W CATH INTACT, O2 AND MONITORS REMOVED. DISCHARGE INSTRUCTIONS REVIEWED WITH PT , SHE VERBALIZED UNDERSTANDING. PT UP TO DRESS FOR DISCHARGE
--- NOTE | 2018-05-31 16:45 | NUR ---
TR BAND REMOVED, NO BLEEDING OR HEMATOMA NOTED. DRESSING APPLIED W 2X2 AND TELFA. PT DISCHARGED TO PRIVATE VEHICLE VIA W/C
--- NOTE | 2018-06-01 13:29 | CN ---
PATIENT NAME:CONSTANCE MOHAMUD MEDICAL RECORD: [id number] : 42 LOCATION:D.CAT ADMIT DATE: ACCOUNT: [id number] CONSULTING PHYSICIAN: DANIELLA SHAW MD REFERRING PHYSICIAN: WILLY DE LEON MD DATE OF CONSULTATION: 05/31/2018 CARDIOLOGY CONSULTATION DIAGNOSES: 1. Unstable angina. 2. Abnormal ECG. 3. Sick sinus syndrome. 4. Status post pacemaker. 5. Glaucoma. HISTORY OF PRESENT ILLNESS: Mrs. Mohamud has had no previous cardiac history. She presents with left arm pain, chest pain, and shortness of breath. These symptoms have been escalating and they got markedly worse this morning. She does have a history of sick sinus syndrome, pacemaker, but no history of ischemic heart disease. Her EKG has significant ST abnormalities. PHYSICAL EXAMINATION: GENERAL APPEARANCE: Well-nourished, well-developed, appears stated age. Level of distress, comfortable. PSYCHIATRIC: Mental status, alert, normal affect. Orientation, oriented to time, place and person. EYES: Lids and conjunctiva, noninjected. No discharge, no pallor. ENT: Lips, teeth, gums, normal dentition. Oropharynx, no cyanosis, no pallor. NECK: Carotid arteries, bilateral normal upstroke, no bruits, no thrills. JUGULAR VEINS: No jugular venous pressure or distention. CERVICAL LYMPH NODES: Nontender, nonenlarged. THYROID: Not enlarged. Nontender. No nodules. LUNGS: Respiratory effort, unlabored. CHEST: Normal curvature. No thoracic deformity. No chest wall tenderness. Percussion, resonant. Auscultation, clear. No wheezes, no rales, no rhonchi. CARDIOVASCULAR: Precordial exam, nondisplaced. No heaves or pericardial thrills. Rate and rhythm, regular. Heart sounds, normal S1, normal S2. No S3, no gallop, no rub. Systolic murmur, not heard. Diastolic murmur, not heard. EXTREMITIES: No cyanosis, no edema. Peripheral pulses, full and equal in all extremities, except as noted. No bruits appreciated. ABDOMEN: Soft, nondistended. Normal aorta. No bruit. Nontender. No masses. Liver, nontender, no hepatomegaly. Spleen, nontender, no splenomegaly. MUSCULOSKELETAL: No joint tenderness. No joint swelling. No erythema. NEUROLOGICAL: Normal gait, normal strength, normal tone. SKIN: Warm and dry. OVERALL IMPRESSION: Chest pain compatible with angina, radiating to her left arm and shortness of breath, most likely she has hemodynamically significant coronary artery disease. We will proceed with coronary angiography. Further care depends upon the findings of the angiography. TRANSINT:[id number] Voice Confirmation ID: [id number] DOCUMENT ID: [id number] CONSULT REPORT [id number] CONSTANCE MOHAMUD, DANIELLA LYNN at 1329 CC: [id number] DICTATION DATE: 05/31/18 1019 PAYROLL COORDINATOR: 05/31/18 1455 DEP CLI 05/31/18 [place] [address] [place] [address]
--- NOTE | 2018-06-01 13:29 | OP ---
PATIENT NAME: CONSTANCE MOHAMUD MEDICAL RECORD: [id number] :42 LOCATION:D.CAT ADMISSION DATE: SURGEON: DANIELLA SHAW MD DATE OF OPERATION: 05/31/2018 DATE OF SERVICE: 05/31/2018 PROCEDURES: 1. PTCA stent RCA. 2. PTCA stent LAD. 3. Left heart catheterization. 4. Selective coronary angiography. 5. Left ventriculogram. INDICATION: Unstable angina and coronary artery disease. PROCEDURE IN DETAIL: After informed consent was obtained and after a detailed description of the risks, benefits as well as alternative therapies, the patient elected to proceed with angiogram and angioplasty. The right radial area was prepped and draped in normal sterile fashion. Right radial artery was cannulated via modified Seldinger technique with placement of 6-Frisian sheath. All catheters exchanged through this sheath. FINDINGS: The left ventriculogram was performed in standard 30-degree BELTRAN view, reveals good cardiac wall motion throughout all segments. Overall ejection fraction estimated at 60%. SELECTIVE CORONARY ANGIOGRAPHY: 1. Left main showed no significant angiographic disease. 2. Left anterior descending has 75+ percent stenosis in the mid vessel. 3. Left circumflex has moderate irregularities, but no flow-limiting stenosis. 4. Right coronary artery has 90% stenosis in the mid vessel. PTCA STENT OF THE LAD AND RCA: The RCA was addressed with a 3.0 x 26-mm Integrity. The LAD with a 2.25 x 22-mm Integrity. Result was 0% residual throughout. OVERALL IMPRESSION: Successful percutaneous transluminal coronary angioplasty stent of the left anterior descending and right coronary artery going from 75-90% initial stenosis to 0% residual. TRANSINT:[id number] Voice Confirmation ID: [id number] DOCUMENT ID: [id number] DANIELLA SHAW MD at 1329 CC: [id number] DICTATION DATE: 05/31/18 1239 LABORATORY OPERATIONS COORDINATOR: 05/31/18 1458 [facility] CLI 05/31/18 [place] [id number]
== END 2018-05-31 16:45 | disposition home or self-care (01) ==
LOC: D.CATH 09:17 → D.ER 09:17 → D.CLR 12:50 → D.ER 12:50 → D.CATH 16:45 → EDSTATUS 17:01
PROVIDERS: Family Medicine
DX: I25.110 Atherosclerotic heart disease of native coronary artery with unstable angina pectoris (principal); R94.31 Abnormal electrocardiogram [ECG] [EKG]; H40.9 Unspecified glaucoma; Z95.0 Presence of cardiac pacemaker

== ENCOUNTER 2018-06-01 07:17 | Observation (INO) | payer MEDICARE, BC ==
[~2018-06-01] VITALS: Ht 170.2 cm; Wt 53.6 kg
[~2018-06-01 07:17] MED LIST changes: +PLAVIX75 MG PO
[2018-06-01 07:35] LABS: BASOPHILS 0.2 % (0-2); EOSINOPHILS 1.8 % (0-7); HEMATOCRIT 40.1 % (36.0-48.0); HEMOGLOBIN 13.8 g/dL (12-16); IMMATURE GRANULOCYTES 0.1 % (0-5); LYMPHOCYTES 41.5 % (15-50); MCH 32.9 pg (26.0-34.0); MCHC 34.4 g/dL (31.0-37.0); MCV 95.5 fL (80.0-100.0); MEAN PLATELET VOLUME 10.2 fL (7.4-10.4); MONOCYTES 8.4 % (2-11); PLATELET COUNT 180 10x3/uL (130-400); RDW 12.9 % (11.5-14.5); WBC 9.1 10x3/uL (4.8-10.8)
[2018-06-01 07:37] LABS: APTT 24.8 SECONDS (22.8-39.4); INR 0.98 (0.85-1.17); PROTIME 12.5 SECONDS (11.6-15.0)
[2018-06-01 07:43] LABS: ALBUMIN 3.2 g/dL (3.4-5.0); ALKALINE PHOSPHATASE 69 U/L (46-116); ALT (SGPT) 15 U/L (10-68); BILIRUBIN - TOTAL 0.25 mg/dL (0.2-1.3); CALC OSMOLALITY 283 mosm/kg (275-300); CALCIUM 9.3 mg/dL (8.5-10.1); CARBON DIOXIDE 24.1 mmol/L (21.0-32.0); CHLORIDE - SERUM 105 mmol/L (98-107); CREATININE - SERUM 1.5 mg/dL (0.6-1.3); GLUCOSE 115 mg/dL (74-106); POTASSIUM - SERUM 3.4 mmol/L (3.5-5.1); PROTEIN - SERUM 6.8 g/dL (6.4-8.2); SODIUM 141 mmol/L (136-145); UREA NITROGEN 17 mg/dL (7-18); eGFR NON AFRICAN AMERICAN 36 mL/min (90-120)
[2018-06-01 07:58] LABS: CKMB 9.2 U/L (0.0-3.6); CREATINE KINASE 113 UL (21-215); MAGNESIUM - SERUM 2.2 mg/dL (1.8-2.4); PRO BNP 158 pg/mL (0-450)
[2018-06-01 08:03] LABS: TROPONIN-I 2.846 ng/mL (0.000-0.060)
--- NOTE | 2018-06-01 11:25 | NUR ---
ASSISTED PT TO BEDSIDE COMMODE
--- NOTE | 2018-06-01 13:29 | EC ---
PATIENT:CONSTANCE MOHAMUD DATE OF SERVICE: 06/01/18 SEX: F MEDICAL RECORD: [id number] DATE OF : 42 [facility] AGE OF PATIENT: 78 ADMISSION DATE: 06/01/18 REFERRING PHYSICIAN: INTERPRETING PHYSICIAN: DANIELLA PETERSON MD ECHOCARDIOGRAM REPORT ECHO CHARGES 4 ECHO COMPLETE Date: 06/01/18 CLINICAL DIAGNOSIS: SOB/ POST STENT HX OF CAD/STENT/PACEMAKER ECHOCARDIOGRAPHIC MEASUREMENTS (adult normal given) AC root (d.<3.7cm) 3.0 cm LV Septum d (<1.2 cm> 1.5 cm Valve Excursion 2.0 cm LV Septum (systole) 1.7 cm Left Atria (s.<4.0cm> 2.9 cm LVPW d(<1.2cm) 1.6 cm RV (d.<2.3cm) 3.0 cm LVPW (sytole) 1.8 cm LV diastole(<5.6CM) 3.6 cm MV E-F(>70mm/sec) cm LV systole 1.8 cm LVOT Diameter 1.4 cm MV exc.(>10mm) 1.3 cm Est.ejection fraction (50-75%) % DOPPLER: LVIT cm/sec A 91.0 cm/sec E 52.0 cm/sec LA cm/sec RVSP 38 mmHg LVOT 123 cm/sec AOP1/2T m/s Asc. Ao 172 cm/sec RVOT 90 cm/sec RA cm/sec PA 128 cm/sec AV Gradient Peak 11.82mmHg AV Mean 6.51 mmHg AV Area 1.1 cm MV Gradient Peak 5.78 mmHg MV Mean 2.52 mmHg MV Area cm COMMENTS: Supervisor Mails: Lee Ann GARCIA Licensed Pesticide Applicator: 1 Dr. Peterson TAPE# PACS Pericardial Effusion N DATE OF SERVICE: 06/01/2018 ECHOCARDIOGRAM DATE OF SERVICE: 06/01/2018 FINDINGS: 1. Left ventricular chamber size is within normal limits. Left ventricular systolic function is normal. Overall ejection fraction estimated at 60%. 2. Left atrium, right atrium, and right ventricle chamber sizes are within ECHOCARDIOGRAM REPORT [id number] CONSTANCE MOHAMUD normal limits. 3. Valvular structures have normal structure and motion. 4. Doppler interrogation reveals mild tricuspid regurgitation, no other valvular insufficiency or stenosis. Pulmonary systolic pressure is estimated at 38 mmHg. 5. No evidence of pericardial effusion or left ventricular thrombus. TRANSINT:[id number] Voice Confirmation ID: [id number] DOCUMENT ID: [id number] DANIELLA PETERSON MD at 1329 CC: [id number] DICTATION DATE: 06/01/18 1230 WOOD MILLING MACHINE OPERATOR: 06/01/18 1307 ADM IN [place] [address] [place] [address]
--- NOTE | 2018-06-01 13:29 | CN ---
PATIENT NAME:CONSTANCE MOHAMUD MEDICAL RECORD: [id number] : 42 LOCATION:D.EDHD.T03- ADMIT DATE: 06/01/18 ACCOUNT: [id number] CONSULTING PHYSICIAN: DANIELLA SHAW MD REFERRING PHYSICIAN: SABINE HUTSON MD DATE OF CONSULTATION: 06/01/2018 DIAGNOSES: 1. Shortness of breath. 2. Chronic obstructive pulmonary disease. 3. Coronary artery disease. 4. Recent PTCA stent RCA, LAD. HISTORY OF PRESENT ILLNESS: Mrs. Mohamud presented yesterday with shortness of breath and ST-T abnormalities, underwent cardiac catheterization revealing 2-vessel coronary artery disease, underwent successful percutaneous transluminal coronary angioplasty stent, right coronary artery and left anterior descending. She now continues with her shortness of breath. She is very tight and has wheezes. She does have COPD and extensive smoking history. She has no ST-T abnormalities on her EKG. Her troponin is mildly elevated, but this could be explained by the procedure yesterday. PHYSICAL EXAMINATION: GENERAL APPEARANCE: Well-nourished, well-developed, appears stated age. Level of distress, comfortable. PSYCHIATRIC: Mental status, alert, normal affect. Orientation, oriented to time, place and person. EYES: Lids and conjunctiva, noninjected. No discharge, no pallor. ENT: Lips, teeth, gums, normal dentition. Oropharynx, no cyanosis, no pallor. NECK: Carotid arteries, bilateral normal upstroke, no bruits, no thrills. JUGULAR VEINS: No jugular venous pressure or distention. CERVICAL LYMPH NODES: Nontender, nonenlarged. THYROID: Not enlarged. Nontender. No nodules. LUNGS: Respiratory effort, unlabored. CHEST: Normal curvature. No thoracic deformity. No chest wall tenderness. Percussion, resonant. Auscultation, clear. No wheezes, no rales, no rhonchi. CARDIOVASCULAR: Precordial exam, nondisplaced. No heaves or pericardial thrills. Rate and rhythm, regular. Heart sounds, normal S1, normal S2. No S3, no gallop, no rub. Systolic murmur, not heard. Diastolic murmur, not heard. EXTREMITIES: No cyanosis, no edema. Peripheral pulses, full and equal in all extremities, except as noted. No bruits appreciated. ABDOMEN: Soft, nondistended. Normal aorta. No bruit. Nontender. No masses. Liver, nontender, no hepatomegaly. Spleen, nontender, no splenomegaly. MUSCULOSKELETAL: No joint tenderness. No joint swelling. No erythema. NEUROLOGICAL: Normal gait, normal strength, normal tone. SKIN: Warm and dry OVERALL IMPRESSION: Shortness of breath most likely at this time is the chronic obstructive pulmonary disease. Do not think this is cardiac in nature actually. No other cardiac workup or treatment is necessary at this time. TRANSINT:[id number] Voice Confirmation ID: [id number] DOCUMENT ID: [id number] CONSULT REPORT [id number] CONSTANCE MOHAMUD JEFFREY MD at 1329 CC: [id number] DICTATION DATE: 06/01/18 0857 SUPERINTENDENT RECREATION: 06/01/18 0933 [facility] IN [facility] [address] [place] [id number]
[2018-06-01 14:11] LABS: CKMB 6.3 U/L (0.0-3.6); CREATINE KINASE 88 UL (21-215)
[2018-06-01 14:12] LABS: TROPONIN-I 1.679 ng/mL (0.000-0.060)
[2018-06-01 14:54] VITALS: BP 141/55; Ht 170.2 cm; Wt 53.6 kg
--- NOTE | 2018-06-01 15:43 | NUR ---
I PAGED RESP. FOR ANOTHER EKG ORDERED. PLACED ON HEART MONITOR SHOWING PACED, HR 87
--- NOTE | 2018-06-01 17:27 | NUR ---
PATIENT IS EATING SUPPER WITH NO NEEDS VOICED. DENIES ANY CHEST PAIN OR SHORTNESS OF BREATH AT THIS TIME. WILL CONTINUE TO FOLLOW AND ASSESS.
[2018-06-01 19:44] VITALS: BP 118/52
[2018-06-01 21:03] LABS: CKMB 3.7 U/L (0.0-3.6); CREATINE KINASE 70 UL (21-215)
[2018-06-01 21:05] LABS: TROPONIN-I 1.371 ng/mL (0.000-0.060)
--- NOTE | 2018-06-01 22:45 | NUR ---
THE PATIENT WAS LYING IN BED WITH SIDERAILS X2 AND CALL LIGHT WITHIN REACH. PATIENT DEMONSTRATES APPROPRIATE USE OF A CALL LIGHT. THE PATIENT APPEARS COMFORTABLE WITH NO COMPLAINTS OR CONCERNS.
--- NOTE | 2018-06-02 03:50 | NUR ---
THE PATIENT APPEARS TO BE SLEEPING COMFORTABLY.
[2018-06-02 04:00] VITALS: BP 117/47
[2018-06-02 05:46] LABS: BASOPHILS 0.2 % (0-2); EOSINOPHILS 0 % (0-7); HEMOGLOBIN 12.6 g/dL (12-16); IMMATURE GRANULOCYTES 0.2 % (0-5); LYMPHOCYTES 15.7 % (15-50); MCH 32.1 pg (26.0-34.0); MCHC 33.2 g/dL (31.0-37.0); MCV 96.7 fL (80.0-100.0); MEAN PLATELET VOLUME 10.5 fL (7.4-10.4); NEUTROPHILS 74.9 % (40-80); PLATELET COUNT 167 10x3/uL (130-400); RBC 3.93 10x6/uL (4.00-5.40); RDW 13.2 % (11.5-14.5)
[2018-06-02 05:51] LABS: WBC 12.4 10x3/uL (4.8-10.8)
[2018-06-02 06:09] LABS: ANION GAP 13.5 mmol/L (8-16); CALCIUM 8.9 mg/dL (8.5-10.1); CARBON DIOXIDE 25.7 mmol/L (21.0-32.0); CREATININE - SERUM 1.6 mg/dL (0.6-1.3); POTASSIUM - SERUM 3.2 mmol/L (3.5-5.1)
--- NOTE | 2018-06-02 07:52 | NUR ---
REPORT RECEIVED. PT SITTING UP IN BED EATING BREAKFAST, RR EVEN AND UNLABORED. NO S/S OF DISTRESS. BED IN LOW POSITION. CALL LIGHT IN REACH. WILL CTM.
[2018-06-02 07:54] VITALS: BP 124/45
--- NOTE | 2018-06-02 08:46 | HP ---
PATIENT: CONSTANCE MOHAMUD MEDICAL RECORD: [id number] ACCOUNT: [id number] LOCATION:[address] : 42 ADMISSION DATE: 06/01/18 PCP: SABINE HUTSON MD HISTORY AND PHYSICAL EXAMINATION DATE OF ADMISSION: 06/01/2018 CHIEF COMPLAINT: Shortness of breath. HISTORY OF PRESENT ILLNESS: This is a 78-year-old female who actually came to [place] ER yesterday with similar complaints, was found to have coronary artery disease. She was taken to the labor arbitrator and had a stent to the LAD and one to the right coronary artery and discharged home. She woke up this morning complaining of shortness of breath about 6:00, she states she was too weak to walk, she has a long history of smoking. She had some chest pain. She was brought to the Emergency Department, her troponin was a little elevated, but that could have been from her stent the day before. Her lab looked pretty good, but with her weakness and shortness of breath she was admitted for further evaluation. The patient has been smoking for approximately 55 years. PAST MEDICAL AND SURGICAL HISTORY: She has had glaucoma, high cholesterol, lumbar disc disease, coronary artery disease, and probable COPD. PAST SURGICAL HISTORY: Back surgery by Dr. Andujar in the early , cardiac stents, 05/31/2018, by Dr. Peterson. ALLERGIES: CLINDAMYCIN AND PENICILLIN. SHE HAS NOT TOLERATED STATINS. HOME MEDICATIONS: Just started Plavix yesterday and before that drops for glaucoma. SOCIAL HISTORY: for 5 years. Retired. FAMILY HISTORY: Father at 42 of an [place]. Mother is also . She had a history of coronary artery disease. REVIEW OF SYSTEMS: GENERAL: No major weight changes. HEENT: No sinus or allergy problems. RESPIRATORY: Long history of smoking, but on no medicines for COPD. CARDIAC: See above history. She has sick sinus syndrome, had a pacemaker placed a few years ago, now coronary artery disease with 2 stents placed yesterday. GASTROINTESTINAL: Denies diarrhea, constipation or heartburn. GENITOURINARY: No significant infections. MUSCULOSKELETAL: No significant arthritis. NEUROLOGIC: No migraines or seizures. PSYCHIATRIC: Denies depression or melancholia. PHYSICAL EXAMINATION: VITAL SIGNS: In triage area in the ER, she had a temperature of 98.1, pulse 85, blood pressure 152/93, respirations 20, O2 sat 95% on 2 liters. GENERAL: She does not appear in acute distress. She is awake and alert. Oxygen is in place. HEENT: Grossly within normal limits. HISTORY AND PHYSICAL [id number] CONSTANCE MOHAMUD NECK: Supple. No JVD or bruit. HEART: Regular rate and rhythm without murmur. LUNGS: Distant breath sounds, a few scattered wheezes, no rales. ABDOMEN: Soft. EXTREMITIES: No edema. LABORATORY DATA: ABG, pH 7.419, pCO2 of 39, pO2 of 85 on 3 liters nasal cannula. Basic metabolic panel is all okay except potassium low at 3.4. Liver functions were fine. INR 0.98. Troponin was elevated at 2.846. ProBNP 158. CBC with a white count 9100, hemoglobin 13.8, 48% polys, 41% lymphocytes. A second troponin this afternoon was down at 1.679. IMAGING: Chest x-ray showed normal heart sounds, pacemaker on the left, calcified left hilar lymph nodes identified. A few calcified granulomas, no airspace disease, no effusion. ASSESSMENT: 1. Dyspnea. 2. Chronic obstructive pulmonary disease exacerbation. 3. Coronary artery disease with 2 stents placed yesterday. PLAN: The patient has been seen by Dr. Peterson, he feels that shortness of breath is most likely COPD. He does not think this is cardiac in nature. He does not feel any more workup should be done from a cardiac standpoint. She is on oxygen right now, we will give her some breathing treatments and some steroids. We will consult pulmonary tomorrow. Other tests or procedures as warranted. TRANSINT:[id number] Voice Confirmation ID: [id number] DOCUMENT ID: [id number] SABINE HUTSON MD at 0846 CC: [id number] DICTATION DATE: 06/01/181939 ELECTRONIC ORGAN MECHANIC: 06/01/182149 ADM IN [facility] [address] [place] [id number]
[2018-06-02 11:46] VITALS: BP 117/42
--- NOTE | 2018-06-02 13:45 | NUR ---
PT VOICED COMPLAINTS OF FEELING NAUSEATED, ADMINISTERED ORDERED ONDANSETRON IV. NO OTHER NEEDS STATED AT THIS TIME. LEFT AC PIV C/D/I. NO S/S OF DISTRESS. BED IN LOW POSITION. CALL LIGHT IN REACH. WILL CTM.
--- NOTE | 2018-06-02 14:08 | NUR ---
PT AMBULATED WITH PT WITHOUT ISSUE. CURRENTLY BACK IN ROOM SITTING UP IN BED. NO S/S OF DISTRESS NOTED. DENIES FURTHER NEEDS, CALL LIGHT IN REACH. WILL CTM.
--- NOTE | 2018-06-02 16:05 | NUR ---
LEFT WRIST PIV REMOVED IN PREPARATION FOR DISCHARGE, MINIMAL BLEEDING NOTED. GAUZE 2 BY 2 APPLIED. INSTRUCTED PT TO LEAVE IN PLACE FOR 2 TO 3 HOURS. PT STATES UNDERSTANDING OF PROVIDED D/C INSTRUCTIONS INCLUDING APPOINTMENT TIME WITH DR HUTSON ON JUNE 08 AT NINE THIRTY IN THE MORNING.
--- NOTE | 2018-06-02 16:17 | NUR ---
LEFT FLOOR BY WHEELCHAIR TO PERSONAL VEHICLE WITH BELONGINGS AND D/C INSTRUCTIONS.
== END 2018-06-02 16:18 | disposition home or self-care (01) ==
LOC: D.ER 07:17 → OBSVTIME 09:08 → D.EDHOLD 09:08 → D.M3 09:08 → D.EDHOLD 09:08 → D.M3 13:58
PROVIDERS: Emergency Medicine; ADMIT Family Medicine
DX: J44.1 Chronic obstructive pulmonary disease with (acute) exacerbation (principal); I25.10 Atherosclerotic heart disease of native coronary artery without angina pectoris; Z95.5 Presence of coronary angioplasty implant and graft; H40.9 Unspecified glaucoma; E78.00 Pure hypercholesterolemia, unspecified

== ENCOUNTER 2018-06-27 09:29 | Inpatient (IN) | payer MEDICARE, BC ==
[~2018-06-27] VITALS: Ht 170.2 cm; Wt 54.9 kg
[2018-06-27 09:52] LABS: BASOPHILS 0.4 % (0-2); EOSINOPHILS 0.9 % (0-7); HEMATOCRIT 38.5 % (36.0-48.0); HEMOGLOBIN 12.7 g/dL (12-16); IMMATURE GRANULOCYTES 0.2 % (0-5); LYMPHOCYTES 30.5 % (15-50); MCH 32.2 pg (26.0-34.0); MCV 97.5 fL (80.0-100.0); MEAN PLATELET VOLUME 9.9 fL (7.4-10.4); MONOCYTES 13.5 % (2-11); NEUTROPHILS 54.5 % (40-80); PLATELET COUNT 145 10x3/uL (130-400); RBC 3.95 10x6/uL (4.00-5.40); RDW 13.1 % (11.5-14.5); WBC 5.6 10x3/uL (4.8-10.8)
[2018-06-27 10:01] LABS: APTT 26.6 SECONDS (22.8-39.4); INR 0.98 (0.85-1.17); PROTIME 12.5 SECONDS (11.6-15.0)
[2018-06-27 10:07] LABS: ALKALINE PHOSPHATASE 86 U/L (46-116); ALT (SGPT) 16 U/L (10-68); BILIRUBIN - TOTAL 0.22 mg/dL (0.2-1.3); CALC OSMOLALITY 280 mosm/kg (275-300); CALCIUM 9.1 mg/dL (8.5-10.1); CARBON DIOXIDE 26.6 mmol/L (21.0-32.0); CHLORIDE - SERUM 104 mmol/L (98-107); CREATININE - SERUM 1.6 mg/dL (0.6-1.3); GLUCOSE 123 mg/dL (74-106); POTASSIUM - SERUM 3.5 mmol/L (3.5-5.1); PROTEIN - SERUM 6.8 g/dL (6.4-8.2); SODIUM 141 mmol/L (136-145); UREA NITROGEN 10 mg/dL (7-18); eGFR NON AFRICAN AMERICAN 33 mL/min (90-120)
[2018-06-27 10:18] LABS: CKMB 1.1 U/L (0.0-3.6); CREATINE KINASE 44 UL (21-215); PRO BNP 829 pg/mL (0-450); TROPONIN-I 0.016 ng/mL (0.000-0.060)
[2018-06-27 11:00] VITALS: BP 140/60
[2018-06-27 12:03] VITALS: BP 136/60
[2018-06-27 13:00] VITALS: BP 133/59
[2018-06-27] MEDS ORDERED: TRUSOPT 2 % OPT10 ML EACH EYE (13:31)
[2018-06-27 13:36] VITALS: BP 157/92; BMI 18.8
--- NOTE | 2018-06-27 13:49 | NUR ---
PT ARRIVED TO FLOOR FROM ER. PT IS A&O. ADMISSION WORKUP COMPLETED. PT STATES SHE HASNT EATEN ALL DAY. ORDERED HER A LUNCH TRAY. WILL LOOK OVER ORDERS AND CPOC.
[2018-06-27] MEDS ORDERED: ALBUTEROL SULF8.5 GM POINH (18:01)
--- NOTE | 2018-06-27 19:27 | NUR ---
PATIENT RESTING IN BED AND DENIES NEEDS AT THIS TIME. BED IN LOWEST POSITION AND CALL LIGHT WITHIN REACH. ENCOURAGED THE PATIENT TO CALL IF SHE HAS NEEDS. WILL CONTINUE TO MONITOR.
[2018-06-27 19:55] VITALS: BP 147/90
[2018-06-27 23:41] VITALS: BP 134/57
--- NOTE | 2018-06-28 00:08 | HP ---
PATIENT: CONSTANCE MOHAMUD MEDICAL RECORD: [id number] ACCOUNT: [id number] LOCATION:[address] : 42 ADMISSION DATE: 06/27/18 PCP: SABINE HUTSON MD HISTORY AND PHYSICAL EXAMINATION DATE OF ADMISSION: 06/27/2018 CHIEF COMPLAINT: Shortness of breath and cough. HISTORY: This is a 78-year-old female who continues to smoke, but states she is quitting, who was brought in today with increased shortness of breath and cough since yesterday morning. She has episodes of shortness of breath, but now she noticed some yellow phlegm. Denies any fever. In the Emergency Room, she was afebrile. O2 sat was 92%. Chest x-ray showed no acute problem. She does not move a lot of air. She has COPD. She is admitted for acute bronchitis and acute exacerbation of COPD. PAST MEDICAL AND SURGICAL HISTORY: Includes glaucoma, high cholesterol, lumbar disc disease, coronary artery disease, and most likely COPD. PAST SURGICAL HISTORY: Back surgery by Dr. Andujar in early . She had coronary stents placed by Dr. Peterson on 05/31/2018. ALLERGIES: CLINDAMYCIN AND PENICILLIN. SHE DOES NOT TOLERATE STATINS WELL. HOME MEDICATIONS: Plavix, ProAir HFA two puffs every 4-6 hours as needed, and latanoprost 0.005% drops for eyes. SOCIAL HISTORY: She is retired. She has been for 5 years and lives alone. FAMILY HISTORY: Father at 42 of an [place]. Mother with history of coronary artery disease. REVIEW OF SYSTEMS: GENERAL: No major weight changes. HEENT: No history of sinus or allergy problems. RESPIRATORY: She has a long history of smoking, but has been on no medications until last month for COPD or for her breathing at all. See above history. CARDIOVASCULAR: She has sick sinus syndrome, had a pacemaker placed few years ago; and now coronary artery disease with 2 stents [place] [address] Peterson. GASTROINTESTINAL: No constipation, diarrhea, or heartburn. GENITOURINARY: No significant problems there. MUSCULOSKELETAL: No significant arthritis. NEUROLOGIC: No migraines. No seizures. PSYCHIATRIC: No depression or melancholia. PHYSICAL EXAMINATION: VITAL SIGNS: Today, temperature 97.7, pulse 86, respirations 18, blood pressure 157/92, and O2 sat 94% on 2 liters. GENERAL: She is awake and alert. She is thin. HEENT: Grossly within normal limits. NECK: Supple. No JVD or bruit. HEART: Regular rate and rhythm without murmur. HISTORY AND PHYSICAL [id number] CONSTANCE MOHAMUD LUNGS: Distant breath sounds and few scattered wheezes. ABDOMEN: Soft. EXTREMITIES: No edema. LABORATORIES: CBC with white count of 5600, hemoglobin 12.7, and hematocrit 38.5. INR 0.98. Basic metabolic panel; sodium 141, potassium 3.5, chloride 104, CO2 of 26.6, BUN 10, creatinine 1.6, glucose 123, and calcium 9.1. Liver functions are essentially normal. Troponin is 0.016. ProBNP 829. DIAGNOSTIC DATA: Chest x-ray shows no acute cardiopulmonary process. ASSESSMENT: 1. Acute bronchitis. 2. Acute exacerbation of COPD. 3. Recent diagnosis of coronary artery disease. PLAN: We will admit. Start antibiotics, steroids, and breathing treatments. Consult pulmonary. Other tests or procedures as warranted. TRANSINT:[id number] Voice Confirmation ID: [id number] DOCUMENT ID: [id number] SABINE HUTSON MD at 0008 CC: [id number] DICTATION DATE: 06/27/181758 FLIGHT HOSTESS: 06/27/18 183 ADM IN [place] [id number] [place] [id number]
[2018-06-28 03:46] VITALS: BP 113/53
[2018-06-28 05:59] LABS: BASOPHILS 0.1 % (0-2); EOSINOPHILS 0 % (0-7); HEMATOCRIT 35.5 % (36.0-48.0); HEMOGLOBIN 11.9 g/dL (12-16); IMMATURE GRANULOCYTES 0.1 % (0-5); LYMPHOCYTES 13.3 % (15-50); MCH 32.2 pg (26.0-34.0); MCHC 33.5 g/dL (31.0-37.0); MCV 95.9 fL (80.0-100.0); MEAN PLATELET VOLUME 10.3 fL (7.4-10.4); MONOCYTES 4.8 % (2-11); NEUTROPHILS 81.7 % (40-80); PLATELET COUNT 144 10x3/uL (130-400)
[2018-06-28 06:03] LABS: WBC 7.1 10x3/uL (4.8-10.8)
[2018-06-28 06:27] LABS: ANION GAP 15.7 mmol/L (8-16); CALCIUM 8.7 mg/dL (8.5-10.1); CARBON DIOXIDE 25.1 mmol/L (21.0-32.0); CREATININE - SERUM 1.4 mg/dL (0.6-1.3); POTASSIUM - SERUM 3.8 mmol/L (3.5-5.1)
--- NOTE | 2018-06-28 07:45 | NUR ---
PT IN BED, EATING BREAKFAST, RESP EVEN AND NONLABORED ON 2L. PT A/O X4, LT FA IV SL. PT DENIES ANY NEEDS AT THIS TIME. CALL LIGHT IN REACH, NAD NOTED, WILL CONTINUE PLAN OF CARE.
[2018-06-28 07:56] VITALS: BP 122/47
--- NOTE | 2018-06-28 08:41 | NUR ---
AM MEDS GIVEN AT THIS TIME. PT DENIES ANY NEEDS AT THIS TIME. CALL LIGHT IN REACH, NAD NOTED,W ILL CONTINUE PLAN OF CARE.
[2018-06-28 12:25] VITALS: Ht 170.2 cm; Wt 54.9 kg
--- NOTE | 2018-06-28 12:25 | NUR ---
CALLED PHARMACY AND SPOKE WITH MARGARITO, INOFORMED HIM THAT I NEED ROCEPHIN FOR PT.
[2018-06-28 12:52] VITALS: BP 116/49
[2018-06-28 15:44] VITALS: BP 120/51
[2018-06-28 21:00] VITALS: BP 135/52
[2018-06-29] VITALS (7 sets, daily range): BP systolic 85–148; BP diastolic 41–79
--- NOTE | 2018-06-29 08:30 | NUR ---
AM MEDS GIVEN AT THIS TIME. CR ROTARY VENEER MACHINE OPERATOR AT BEDSIDE TO TALK TO PT. PT DENIES ANY NEEDS AT THIS TIME. PT A/OX4, RESP EVEN AND NONLABORED. LT FA IV SL. CALL LIGHT IN REACH, NAD NOTED, WILL CONTINUE TO MONITOR.
--- NOTE | 2018-06-29 08:55 | MORECARE ---
CASE MANAGEMENT DISCHARGE SUMMARY PATIENT: CONSTANCE MOHAMUD ESTUARDO UNIT: [id number] ADM DATE: 06/28/18 AGE: 78 : 41 SEX: F ROOM/BED: D.1204 AUTHOR: THONG GARCIA PHYSICIAN: REFERRING PHYSICIAN: SABINE HUTSON MD DATE OF SERVICE: 06/29/18 Discharge Plan Patient Name: CONSTANCE MOHAMUD [facility] [facility] 1940 Planned Disposition: Anticipated Discharge Date: Discharge Date: Expected LOS: Initial Reviewer: [email or web address] Initial Review Date: 06/29/2018 Generated: 06/29/18 9:55 am Coverage Notice Reviewer: [id number] - Ilana Echeverria Notice Issued Date-Time: 06/28/2018 15:57 Notice Type: Medicare Outpatient Observation Notice Notice Delivered To: Patient Relationship to Patient: Self Head Piece Assembler Name: Delivery Method: HAND - Hand Delivered Shereen Days: Prior Verbal Notification: Recipient Understood Notice: Yes Recipient Signature: Yes Med Rec Note Co-signed by Attending: Coverage Notice Comment: Patient Name: CONSTANCE MOHAMUD Page [phone] at 0855 All edits/amendments must be made on the electronic document DICTATION DATE: 06/29/18853 COMMUNICATION LECTURER: CHECO 06/29/1854 RPT#: [id number] DC DATE: STATUS: ADM IN [facility] [address] [place] [address] END OF REPORT
--- NOTE | 2018-06-29 09:03 | MORECARE ---
CASE MANAGEMENT DISCHARGE SUMMARY PATIENT: CONSTANCE MOHAMUD ESTUARDO UNIT: [id number] ADM DATE: 06/28/18 AGE: 78 : 41 SEX: F ROOM/BED: D.1204 AUTHOR: THONG GARCIA PHYSICIAN: REFERRING PHYSICIAN: SABINE HUTSON MD DATE OF SERVICE: 06/29/18 Discharge Plan Patient Name: CONSTANCE MOHAMUD Facility: [facility]:[place] : 1940 Planned Disposition: Anticipated Discharge Date: Discharge Date: Expected LOS: Initial Reviewer: [email or web address] Initial Review Date: 06/29/2018 Generated: 06/29/18 10:02 am DCPIA - Discharge Planning Initial Assessment Updated by [email or web address]: Ilana Echeverria on 06/29/18 8:57 am * Is the patient Alert and Oriented? Yes * PCP CARYL * Pharmacy [facility] * Preadmission Environment Home Alone * ADLs Independent * Equipment Walker * List name and contact numbers for known caregivers / representatives who currently or will assist patient after discharge: FERMIN GANDHI, * Community resources currently utilized None * Additional services required to return to the preadmission environment? Yes * Can the patient safely return to the preadmission environment? Yes * Has this patient been hospitalized within the prior 30 days at any hospital? Yes Coverage Notice Reviewer: [id number] Josette Echeverria Notice Issued Date-Time: 06/28/2018 15:57 Notice Type: Medicare Outpatient Observation Notice Notice Delivered To: Patient Relationship to Patient: Self Water Purifier Operator Name: Delivery Method: HAND - Hand Delivered Shereen Days: Prior Verbal Notification: Recipient Understood Notice: Yes Recipient Signature: Yes Med Rec Note Co-signed by Attending: Coverage Notice Comment: Reviewer: [email or web address] Josette Echeverria Notice Issued Date-Time: 06/29/2018 9:00 Notice Type: Patient Choice Letter Notice Delivered To: Patient Relationship to Patient: Self Water Purifier Operator Name: Delivery Method: - Shereen Days: Prior Verbal Notification: Recipient Understood Notice: Recipient Signature: Med Rec Note Co-signed by Attending: Coverage Notice Comment: Last DP export: 06/29/18 7:55 a Patient Name: CONSTANCE MOHAMUD Page [phone] at 0903 All edits/amendments must be made on the electronic document DICTATION DATE: 06/29/18901 ALLERGIST/IMMUNOLOGIST PHYSICIAN: CHECO 06/29/18901 RPT#: [id number] DC DATE: STATUS: ADM IN [facility] [address] [place] [address] END OF REPORT
--- NOTE | 2018-06-29 10:21 | MORECARE ---
CASE MANAGEMENT DISCHARGE SUMMARY PATIENT: CONSTANCE MOHAMUD ESTUARDO UNIT: [id number] ADM DATE: 06/28/18 AGE: 78 : 41 SEX: F ROOM/BED: D.1204 AUTHOR: THONG GARCIA PHYSICIAN: REFERRING PHYSICIAN: SABINE HUTSON MD DATE OF SERVICE: 06/29/18 Discharge Plan Patient Name: CONSTANCE MOHAMUD Facility: [facility]:[place] : 1940 Planned Disposition: Anticipated Discharge Date: Discharge Date: Expected LOS: Initial Reviewer: [email or web address] Initial Review Date: 06/29/2018 Generated: 06/29/18 11:21 am DCPIA - Discharge Planning Initial Assessment Updated by [email or web address]: Ilana Echeverria on 06/29/18 8:57 am * Is the patient Alert and Oriented? Yes * PCP CARYL * Pharmacy [facility] * Preadmission Environment Home Alone * ADLs Independent * Equipment Walker * List name and contact numbers for known caregivers / representatives who currently or will assist patient after discharge: FERMIN GANDHI, * Community resources currently utilized None * Additional services required to return to the preadmission environment? Yes * Can the patient safely return to the preadmission environment? Yes * Has this patient been hospitalized within the prior 30 days at any hospital? Yes External Providers External Provider: [facility] Next Contact Date: Service Request Date: Service Type: Resolution: Reviewer: Comments: Coverage Notice Reviewer: [email or web address] Josette Echeverria Notice Issued Date-Time: 06/28/2018 15:57 Notice Type: Medicare Outpatient Observation Notice Notice Delivered To: Patient Relationship to Patient: Self Shipping Lead Name: Delivery Method: HAND - Hand Delivered Shereen Days: Prior Verbal Notification: Recipient Understood Notice: Yes Recipient Signature: Yes Med Rec Note Co-signed by Attending: Coverage Notice Comment: Reviewer: [id number] Josette Echeverria Notice Issued Date-Time: 06/29/2018 9:00 Notice Type: Patient Choice Letter Notice Delivered To: Patient Relationship to Patient: Self Shipping Lead Name: Delivery Method: HAND - Hand Delivered Shereen Days: Prior Verbal Notification: Recipient Understood Notice: Yes Recipient Signature: Yes Med Rec Note Co-signed by Attending: Coverage Notice Comment: KAYLEE OLIVER DP export: 06/29/18 8:03 a Patient Name: CONSTANCE MOHAMUD Page [phone] at 1021 All edits/amendments must be made on the electronic document DICTATION DATE: 06/29/18 1021 PUBLIC TRANSIT BUS DRIVER: CHECO 06/29/18 1021 RPT#: [id number] DC DATE: STATUS: ADM IN [facility] [address] [place] [address] END OF REPORT
--- NOTE | 2018-06-29 13:28 | MORECARE ---
CASE MANAGEMENT DISCHARGE SUMMARY PATIENT: CONSTANCE MOHAMUD ESTUARDO UNIT: [id number] ADM DATE: 06/28/18 AGE: 78 : 41 SEX: F ROOM/BED: D.1204 AUTHOR: THONG GARCIA PHYSICIAN: REFERRING PHYSICIAN: SABINE HUTSON MD DATE OF SERVICE: 06/29/18 Discharge Plan Patient Name: CONSTANCE MOHAMUD Facility: [facility]:[place] : 1940 Planned Disposition: Anticipated Discharge Date: Discharge Date: Expected LOS: Initial Reviewer: [id number] Initial Review Date: 06/29/2018 Generated: 06/29/18 2:28 pm DCPIA - Discharge Planning Initial Assessment Updated by [email or web address]: Ilana Echeverria on 06/29/18 8:57 am * Is the patient Alert and Oriented? Yes * PCP CARYL * Pharmacy [facility] * Preadmission Environment Home Alone * ADLs Independent * Equipment Walker * List name and contact numbers for known caregivers / representatives who currently or will assist patient after discharge: FERMIN GANDHI, * Community resources currently utilized None * Additional services required to return to the preadmission environment? Yes * Can the patient safely return to the preadmission environment? Yes * Has this patient been hospitalized within the prior 30 days at any hospital? Yes External Providers External Provider: Dayron Dailey Next Contact Date: Service Request Date: Service Type: Resolution: Reviewer: Comments: Coverage Notice Reviewer: [id number] Josette Echeverria Notice Issued Date-Time: 06/28/2018 15:57 Notice Type: Medicare Outpatient Observation Notice Notice Delivered To: Patient Relationship to Patient: Self Toll Operator Name: Delivery Method: HAND - Hand Delivered Shereen Days: Prior Verbal Notification: Recipient Understood Notice: Yes Recipient Signature: Yes Med Rec Note Co-signed by Attending: Coverage Notice Comment: Reviewer: [id number] Josette Echeverria Notice Issued Date-Time: 06/29/2018 9:00 Notice Type: Patient Choice Letter Notice Delivered To: Patient Relationship to Patient: Self Toll Operator Name: Delivery Method: HAND - Hand Delivered Shereen Days: Prior Verbal Notification: Recipient Understood Notice: Yes Recipient Signature: Yes Med Rec Note Co-signed by Attending: Coverage Notice Comment: KAYLEE OLIVER Reviewer: [id number] Josette Echeverria Notice Issued Date-Time: 06/29/2018 12:02 Notice Type: IM Discharge Notice Notice Delivered To: Patient Relationship to Patient: Self Toll Operator Name: Delivery Method: HAND - Hand Delivered Shereen Days: Prior Verbal Notification: Recipient Understood Notice: Yes Recipient Signature: Yes Med Rec Note Co-signed by Attending: Coverage Notice Comment: Last DP export: 06/29/18 9:21 a Patient Name: CONSTANCE MOHAMUD Page [id number] at 1328 All edits/amendments must be made on the electronic document DICTATION DATE: 06/29/18 1327 POLISHER DIAL: CHECO 06/29/18 1327 RPT#: [id number] DC DATE: STATUS: ADM IN [facility] [address] [place] [address] END OF REPORT
--- NOTE | 2018-06-29 13:30 | NUR ---
WALKED TEST DONE ON PT. O2 ON ROOM AIR LAYING IN BED WAS 93% AMBULATED PT TO NURSES STATION AND BACK TO ROOM O2 STAYED AT 92% ONCE I GOT PT BACK IN BED O2 WAS 93% PT GOT A LITTLE SOB WHEN AMBULATING BUT O2 DID NOT DROP BELOW 90%.
--- NOTE | 2018-06-29 14:40 | MORECARE ---
CASE MANAGEMENT DISCHARGE SUMMARY PATIENT: CONSTANCE MOHAMUD ESTUARDO UNIT: [id number] ADM DATE: 06/28/18 AGE: 78 : 41 SEX: F ROOM/BED: D.1204 AUTHOR: THONG GARCIA PHYSICIAN: REFERRING PHYSICIAN: SABINE HUTSON MD DATE OF SERVICE: 06/29/18 Discharge Plan Patient Name: CONSTANCE MOHAMUD Facility: [facility]:[place] : 1940 Planned Disposition: Anticipated Discharge Date: Discharge Date: Expected LOS: Initial Reviewer: [id number] Initial Review Date: 06/29/2018 Generated: 06/29/18 3:40 pm Comments DCP- Discharge Planning Updated by [id number]: Ilana Echeverria on 06/29/18 1:[address] Patient Name: CONSTANCE MOHAMUD Admission Status: ER Accout number: [id number] Admission Date: 06-28-2018 : 1940 Admission Diagnosis: Attending: SABINE HUTSON Current LOS: 1 Anticipated DC Date: Planned Disposition: Primary Insurance: MEDICARE A & B Discharge Planning Comments: WALK TEST DONE ON PATIENT, SHE DOES NOT MEET CRITERIA FOR 02. CM SPOKE WITH AND FAXED DOCS TO [facility] FOR NEBULIZER. CM WILL CALL THEM WITH A DISCHARGE DATE. Svp Digital [employer] Sales: Ilana Echeverria DCPIA - Discharge Planning Initial Assessment Updated by [email or web address]: Ilana Echeverria on 06/29/18 8:57 am * Is the patient Alert and Oriented? Yes * PCP CARYL * Pharmacy [facility] * Preadmission Environment Home Alone * ADLs Independent * Equipment Walker * List name and contact numbers for known caregivers / representatives who currently or will assist patient after discharge: FERMIN GANDHI, * Community resources currently utilized None * Additional services required to return to the preadmission environment? Yes * Can the patient safely return to the preadmission environment? Yes * Has this patient been hospitalized within the prior 30 days at any hospital? Yes Coverage Notice Reviewer: [id number] - Ilana Echeverria Notice Issued Date-Time: 06/28/2018 15:57 Notice Type: Medicare Outpatient Observation Notice Notice Delivered To: Patient Relationship to Patient: Self Patient Registration Manager Name: Delivery Method: HAND - Hand Delivered Shereen Days: Prior Verbal Notification: Recipient Understood Notice: Yes Recipient Signature: Yes Med Rec Note Co-signed by Attending: Coverage Notice Comment: Reviewer: [id number] Josette Echeverria Notice Issued Date-Time: 06/29/2018 9:00 Notice Type: Patient Choice Letter Notice Delivered To: Patient Relationship to Patient: Self Patient Registration Manager Name: Delivery Method: HAND - Hand Delivered Shereen Days: Prior Verbal Notification: Recipient Understood Notice: Yes Recipient Signature: Yes Med Rec Note Co-signed by Attending: Coverage Notice Comment: KAYLEE OLIVER Reviewer: [id number] Josette Echeverria Notice Issued Date-Time: 06/29/2018 12:02 Notice Type: IM Discharge Notice Notice Delivered To: Patient Relationship to Patient: Self Patient Registration Manager Name: Delivery Method: HAND - Hand Delivered Shereen Days: Prior Verbal Notification: Recipient Understood Notice: Yes Recipient Signature: Yes Med Rec Note Co-signed by Attending: Coverage Notice Comment: Last DP export: 06/29/18 12:28 p Patient Name: CONSTANCE MOHAMUD Page [id number] at 1440 All edits/amendments must be made on the electronic document DICTATION DATE: 06/29/18 1440 DEVELOPER ANALYST: CHECO 06/29/18 1440 RPT#: [id number] DC DATE: STATUS: ADM IN [facility] [address] [place] [address] END OF REPORT
--- NOTE | 2018-06-29 17:43 | NUR ---
PT GOT IN THE SHOWER, COMPLETE LINEN CHANGED DONE AT THIS TIME.
--- NOTE | 2018-06-29 18:09 | NUR ---
PATIENT RESTING IN BED WITH NO S/S OF DISTRESS. CLEARED PATIENT'S TRAY PER HER REQUEST. PATIENT DENIES OTHER NEEDS AT THIS TIME. BED IN LOWEST POSITION AND CALL LIGHT WITHIN REACH. ENCOURAGED THE PATIENT TO CALL IF SHE HAS NEEDS. WILL CONTINUE TO MONITOR.
--- NOTE | 2018-06-29 23:49 | NUR ---
PATIENT RESTING IN BED WITH EYES CLOSED AND NO S/S OF DISTRESS. BED IN LOWEST POSITION AND CALL LIGHT WITHIN REACH. WILL CONTINUE TO MONITOR.
[2018-06-30] VITALS: BP 134/64
[2018-06-30 03:00] VITALS: BP 152/62
[2018-06-30 08:51] VITALS: BP 131/54
[2018-06-30] MEDS ORDERED: MEDROL DOSE PACK4 MG PO (08:57)
[2018-06-30] MEDS ORDERED: OMNICEF300 MG PO (08:59)
--- NOTE | 2018-06-30 09:30 | MORECARE ---
CASE MANAGEMENT DISCHARGE SUMMARY PATIENT: CONSTANCE MOHAMUD ESTUARDO UNIT: [id number] ADM DATE: 06/28/18 AGE: 78 : 41 SEX: F ROOM/BED: D.1204 AUTHOR: THONG GARCIA PHYSICIAN: REFERRING PHYSICIAN: SABINE HUTSON MD DATE OF SERVICE: 06/30/18 Discharge Plan Patient Name: CONSTANCE MOHAMUD Facility: [facility]:[place] : 1940 Planned Disposition: Anticipated Discharge Date: Discharge Date: Expected LOS: Initial Reviewer: [id number] Initial Review Date: 06/29/2018 Generated: 06/30/18 10:30 am Comments DCP- Discharge Planning Updated by [id number]: Ilana Echeverria on 06/30/18 8:[address] Patient Name: CONSTANCE MOHAMUD Admission Status: ER Accout number: [id number] Admission Date: 06-28-2018 : 1940 Admission Diagnosis: Attending: SABINE HUTSON Current LOS: 2 Anticipated DC Date: Planned Disposition: Primary Insurance: MEDICARE A & B Discharge Planning Comments: CM SPOKE WITH [facility] THIS MORNING AND THEY WILL DELIVER NEBULIZER TO PATIENT IN HER ROOM AROUND 11AM TODAY. CM WILL FOLLOW AND ASSIST NEEDED WITH DC PLANNING/NEEDS. Medical Secretary Receptionist: Ilana Echeverria DCP- Discharge Planning Updated by [id number]: Ilana Echeverria on 06/29/18 1:[address] Patient Name: CONSTANCE MOHAMUD Admission Status: ER Accout number: [id number] Admission Date: 06-28-2018 : 1940 Admission Diagnosis: Attending: SABINE HUTSON Current LOS: 1 Anticipated DC Date: Planned Disposition: Primary Insurance: MEDICARE A & B Discharge Planning Comments: WALK TEST DONE ON PATIENT, SHE DOES NOT MEET CRITERIA FOR 02. CM SPOKE WITH AND FAXED DOCS TO [facility] FOR NEBULIZER. CM WILL CALL THEM WITH A DISCHARGE DATE. Medical Secretary Receptionist: Ilana Echeverria DCPIA - Discharge Planning Initial Assessment Updated by [id number]: Ilana Echeverria on 06/29/18 8:57 am * Is the patient Alert and Oriented? Yes * PCP CARYL * Pharmacy [facility] * Preadmission Environment Home Alone * ADLs Independent * Equipment Walker * List name and contact numbers for known caregivers / representatives who currently or will assist patient after discharge: FERMIN GANDHI, * Community resources currently utilized None * Additional services required to return to the preadmission environment? Yes * Can the patient safely return to the preadmission environment? Yes * Has this patient been hospitalized within the prior 30 days at any hospital? Yes Coverage Notice Reviewer: [id number] Echeverria Notice Issued Date-Time: 06/28/2018 15:57 Notice Type: Medicare Outpatient Observation Notice Notice Delivered To: Patient Relationship to Patient: Self Hose Tubing Backer Name: Delivery Method: HAND - Hand Delivered Shereen Days: Prior Verbal Notification: Recipient Understood Notice: Yes Recipient Signature: Yes Med Rec Note Co-signed by Attending: Coverage Notice Comment: Reviewer: HEBER Echeverria Notice Issued Date-Time: 06/29/2018 9:00 Notice Type: Patient Choice Letter Notice Delivered To: Patient Relationship to Patient: Self Hose Tubing Backer Name: Delivery Method: HAND - Hand Delivered Shereen Days: Prior Verbal Notification: Recipient Understood Notice: Yes Recipient Signature: Yes Med Rec Note Co-signed by Attending: Coverage Notice Comment: KAYLEE OLIVER Reviewer: [id number] Echeverria Notice Issued Date-Time: 06/29/2018 12:02 Notice Type: IM Discharge Notice Notice Delivered To: Patient Relationship to Patient: Self Hose Tubing Backer Name: Delivery Method: HAND - Hand Delivered Shereen Days: Prior Verbal Notification: Recipient Understood Notice: Yes Recipient Signature: Yes Med Rec Note Co-signed by Attending: Coverage Notice Comment: Last DP export: 06/29/18 1:40 p Patient Name: CONSTANCE MOHAMUD Page [id number] at 0930 All edits/amendments must be made on the electronic document DICTATION DATE: 06/30/18928 METAL FABRICATING SUPERVISOR: CHECO 06/30/18928 RPT#: [id number] DC DATE: STATUS: ADM IN [facility] [address] [place] [address] END OF REPORT
--- NOTE | 2018-06-30 10:09 | MORECARE ---
CASE MANAGEMENT DISCHARGE SUMMARY PATIENT: CONSTANCE MOHAMUD ESTUARDO UNIT: [id number] ADM DATE: 06/28/18 AGE: 78 : 41 SEX: F ROOM/BED: D.1204 AUTHOR: THONG GARCIA PHYSICIAN: REFERRING PHYSICIAN: SABINE HUTSON MD DATE OF SERVICE: 06/30/18 Discharge Plan Patient Name: CONSTANCE MOHAMUD Facility: [facility]:[place] : 1940 Planned Disposition: Anticipated Discharge Date: Discharge Date: Expected LOS: Initial Reviewer: [id number] Initial Review Date: 06/29/2018 Generated: 06/30/18 11:09 am Comments DCP- Discharge Planning Updated by [email or web address]: Ilana Echeverria on 06/30/18 8:[address] Patient Name: CONSTANCE MOHAMUD Admission Status: ER Accout number: [id number] Admission Date: 06-28-2018 : 1940 Admission Diagnosis: Attending: SABINE HUTSON Current LOS: 2 Anticipated DC Date: Planned Disposition: Primary Insurance: MEDICARE A & B Discharge Planning Comments: CM SPOKE WITH [facility] THIS MORNING AND THEY WILL DELIVER NEBULIZER TO PATIENT IN HER ROOM AROUND 11AM TODAY. CM WILL FOLLOW AND ASSIST NEEDED WITH DC PLANNING/NEEDS. Pmo Manager: Ilana Echeverria DCP- Discharge Planning Updated by [id number]: Ilana Echeverria on 06/29/18 1:[address] Patient Name: CONSTANCE MOHAMUD Admission Status: ER Accout number: [id number] Admission Date: 06-28-2018 : 1940 Admission Diagnosis: Attending: SABINE HUTSON Current LOS: 1 Anticipated DC Date: Planned Disposition: Primary Insurance: MEDICARE A & B Discharge Planning Comments: WALK TEST DONE ON PATIENT, SHE DOES NOT MEET CRITERIA FOR 02. CM SPOKE WITH AND FAXED DOCS TO [facility] FOR NEBULIZER. CM WILL CALL THEM WITH A DISCHARGE DATE. Pmo Manager: Ilana Echeverria DCPIA - Discharge Planning Initial Assessment Updated by [id number]: Ilana Echeverria on 06/29/18 8:57 am * Is the patient Alert and Oriented? Yes * PCP CARYL * Pharmacy [facility] * Preadmission Environment Home Alone * ADLs Independent * Equipment Walker * List name and contact numbers for known caregivers / representatives who currently or will assist patient after discharge: FERMIN GANDHI, * Community resources currently utilized None * Additional services required to return to the preadmission environment? Yes * Can the patient safely return to the preadmission environment? Yes * Has this patient been hospitalized within the prior 30 days at any hospital? Yes External Providers External Provider: [facility] Next Contact Date: Service Request Date: Service Type: Resolution: Reviewer: Comments: Coverage Notice Reviewer: HEBER Echeverria Notice Issued Date-Time: 06/30/2018 10:07 Notice Type: Patient Choice Letter Notice Delivered To: Patient Relationship to Patient: Self Nanotechnology Engineering Technician Name: Delivery Method: HAND - Hand Delivered Shereen Days: Prior Verbal Notification: Recipient Understood Notice: Yes Recipient Signature: Yes Med Rec Note Co-signed by Attending: [facility]age [facility] Reviewer: HEBER Echeverria Notice Issued Date-Time: 06/29/2018 9:00 Notice Type: Patient Choice Letter Notice Delivered To: Patient Relationship to Patient: Self Nanotechnology Engineering Technician Name: Delivery Method: HAND - Hand Delivered Shereen Days: Prior Verbal Notification: Recipient Understood Notice: Yes Recipient Signature: Yes Med Rec Note Co-signed by Attending: Coverage Notice Comment: KAYLEE OLIVER Reviewer: HEBER Echeverria Notice Issued Date-Time: 06/28/2018 15:57 Notice Type: Medicare Outpatient Observation Notice Notice Delivered To: Patient Relationship to Patient: Self Nanotechnology Engineering Technician Name: Delivery Method: HAND - Hand Delivered Shereen Days: Prior Verbal Notification: Recipient Understood Notice: Yes Recipient Signature: Yes Med Rec Note Co-signed by Attending: Coverage Notice Comment: Reviewer: HEBER Echeverria Notice Issued Date-Time: 06/29/2018 12:02 Notice Type: IM Discharge Notice Notice Delivered To: Patient Relationship to Patient: Self Nanotechnology Engineering Technician Name: Delivery Method: HAND - Hand Delivered Shereen Days: Prior Verbal Notification: Recipient Understood Notice: Yes Recipient Signature: Yes Med Rec Note Co-signed by Attending: Coverage Notice Comment: Last DP export: 06/30/18 8:30 a Patient Name: CONSTANCE MOHAMUD Page 84114 at 1009 All edits/amendments must be made on the electronic document DICTATION DATE: 06/30/18 1009 STOREROOM CLERK: CHECO 06/30/18 1009 RPT#: [id number] DC DATE: STATUS: ADM IN [facility] [address] [place] [address] END OF REPORT
--- NOTE | 2018-06-30 10:24 | MORECARE ---
CASE MANAGEMENT DISCHARGE SUMMARY PATIENT: CONSTANCE MOHAMUD ESTUARDO UNIT: [id number] ADM DATE: 06/28/18 AGE: 78 : 41 SEX: F ROOM/BED: D.1204 AUTHOR: THONG GARCIA PHYSICIAN: REFERRING PHYSICIAN: SABINE HUTSON MD DATE OF SERVICE: 06/30/18 Discharge Plan Patient Name: CONSTANCE MOHAMUD Facility: [facility]:[place] : 1940 Planned Disposition: Anticipated Discharge Date: Discharge Date: Expected LOS: Initial Reviewer: [id number] Initial Review Date: 06/29/2018 Generated: 06/30/18 11:24 am Comments DCP- Discharge Planning Updated by [email or web address]: Ilana Echeverria on 06/30/18 9:[address] Patient Name: CONSTANCE MOHAMUD Admission Status: ER Accout number: [id number] Admission Date: 06-28-2018 : 1940 Admission Diagnosis: Attending: SABINE HUTSON Current LOS: 2 Anticipated DC Date: Planned Disposition: Primary Insurance: MEDICARE A & B Discharge Planning Comments: PATIENT DECIDED SHE WANTS HH WITH CARE IV, HH CONTACTED AND DOCUMENTS FAXED. WAITING ON PT EVAL AT THIS TIME. Adjunct Professor Of English: Ilana Echeverria DCP- Discharge Planning Updated by [id number]: Ilana Echeverria on 06/30/18 8:[address] Patient Name: CONSTANCE MOHAMUD Admission Status: ER Accout number: [id number] Admission Date: 06-28-2018 : 1940 Admission Diagnosis: Attending: SABINE HUTSON Current LOS: 2 Anticipated DC Date: Planned Disposition: Primary Insurance: MEDICARE A & B Discharge Planning Comments: CM SPOKE WITH [facility] THIS MORNING AND THEY WILL DELIVER NEBULIZER TO PATIENT IN HER ROOM AROUND 11AM TODAY. CM WILL FOLLOW AND ASSIST NEEDED WITH DC PLANNING/NEEDS. Adjunct Professor Of English: Ilana Echeverria DCP- Discharge Planning Updated by [id number]: Ilana Echeverria on 06/29/18 1:[address] Patient Name: CONSTANCE MOHAMUD Admission Status: ER Accout number: [id number] Admission Date: 06-28-2018 : 1940 Admission Diagnosis: Attending: SABINE HUTSON Current LOS: 1 Anticipated DC Date: Planned Disposition: Primary Insurance: MEDICARE A & B Discharge Planning Comments: WALK TEST DONE ON PATIENT, SHE DOES NOT MEET CRITERIA FOR 02. CM SPOKE WITH AND FAXED DOCS TO [facility] FOR NEBULIZER. CM WILL CALL THEM WITH A DISCHARGE DATE. Adjunct Professor Of English: Ilana Echeverria DCPIA - Discharge Planning Initial Assessment Updated by [id number]: Ilana Echeverria on 06/29/18 8:57 am * Is the patient Alert and Oriented? Yes * PCP CARYL * [facility] * Preadmission Environment Home Alone * ADLs Independent * Equipment Walker * List name and contact numbers for known caregivers / representatives who currently or will assist patient after discharge: FERMIN GANDHI, * Community resources currently utilized None * Additional services required to return to the preadmission environment? Yes * Can the patient safely return to the preadmission environment? Yes * Has this patient been hospitalized within the prior 30 days at any hospital? Yes Coverage Notice Reviewer: [id number] Echeverria Notice Issued Date-Time: 06/30/2018 10:07 Notice Type: Patient Choice Letter Notice Delivered To: Patient Relationship to Patient: Self Fire Lookout Name: Delivery Method: HAND - Hand Delivered Shereen Days: Prior Verbal Notification: Recipient Understood Notice: Yes Recipient Signature: Yes Med Rec Note Co-signed by Attending: Coverage Notice Comment: CHICA LEDESMA IV Reviewer: [id number] Josette Echeverria Notice Issued Date-Time: 06/29/2018 9:00 Notice Type: Patient Choice Letter Notice Delivered To: Patient Relationship to Patient: Self Fire Lookout Name: Delivery Method: HAND - Hand Delivered Shereen Days: Prior Verbal Notification: Recipient Understood Notice: Yes Recipient Signature: Yes Med Rec Note Co-signed by Attending: Coverage Notice Comment: KAYLEE OLIVER Reviewer: [id number] Josette Echeverria Notice Issued Date-Time: 06/28/2018 15:57 Notice Type: Medicare Outpatient Observation Notice Notice Delivered To: Patient Relationship to Patient: Self Fire Lookout Name: Delivery Method: HAND - Hand Delivered Shereen Days: Prior Verbal Notification: Recipient Understood Notice: Yes Recipient Signature: Yes Med Rec Note Co-signed by Attending: Coverage Notice Comment: Reviewer: [id number] Josette Echeverria Notice Issued Date-Time: 06/29/2018 12:02 Notice Type: IM Discharge Notice Notice Delivered To: Patient Relationship to Patient: Self Fire Lookout Name: Delivery Method: HAND - Hand Delivered Shereen Days: Prior Verbal Notification: Recipient Understood Notice: Yes Recipient Signature: Yes Med Rec Note Co-signed by Attending: Coverage Notice Comment: Last DP export: 06/30/18 9:09 a Patient Name: CONSTANCE MOHAMUD Page 09699 at 1024 All edits/amendments must be made on the electronic document DICTATION DATE: 06/30/18 1024 AIRCRAFT ENGINE SPECIALIST: CHECO 06/30/18 1024 RPT#: [id number] DC DATE: STATUS: ADM IN [facility] [address] [place] [address] END OF REPORT
--- NOTE | 2018-06-30 10:47 | MORECARE ---
CASE MANAGEMENT DISCHARGE SUMMARY PATIENT: CONSTANCE MOHAMUD ESTUARDO UNIT: [id number] ADM DATE: 06/28/18 AGE: 78 : 41 SEX: F ROOM/BED: D.1204 AUTHOR: THONG GARCIA PHYSICIAN: REFERRING PHYSICIAN: SABINE HUTSON MD DATE OF SERVICE: 06/30/18 Discharge Plan Patient Name: CONSTANCE MOHAMUD Facility: [facility]:[place] : 1940 Planned Disposition: Home Health Service Anticipated Discharge Date: 06/30/18 Discharge Date: Expected LOS: 2 Initial Reviewer: [id number] Initial Review Date: 06/29/2018 Generated: 06/30/18 11:47 am Comments DCP- Discharge Planning Updated by [email or web address]: Ilana Echeverria on 06/30/18 9:[address] Patient Name: CONSTANCE MOHAMUD Admission Status: ER Accout number: [id number] Admission Date: 06-28-2018 : 1940 Admission Diagnosis: Attending: SABINE HUTSON Current LOS: 2 Anticipated DC Date: Planned Disposition: Primary Insurance: MEDICARE A & B Discharge Planning Comments: PATIENT DECIDED SHE WANTS WITH [facility], CONTACTED AND DOCUMENTS FAXED. WAITING ON PT EVAL AT THIS TIME. Yarn Finisher: Ilana Echeverria Appended by Ilana Echeverria on 06/30/2018 10:45 APPLIED COMPUTER SCIENCE PROFESSOR: SPOKE WITH [facility] AND THEY WILL SEE THE PATIENT TOMORROW AT HER HOME. WHEN THE NEBULIZER ARRIVES HERE AT THE HOSPITAL, ALAN FROM IS GOING TO COME AND SHOW HER HOW TO USE IT. CM WILL FOLLOW AND ASSIST NEEDED. DCP- Discharge Planning Updated by [email or web address]: Ilana Echeverria on 06/30/18 8:[address] Patient Name: CONSTANCE MOHAMUD Admission Status: ER Accout number: [id number] Admission Date: 06-28-2018 : 1940 Admission Diagnosis: Attending: SABINE HUTSON Current LOS: 2 Anticipated DC Date: Planned Disposition: Primary Insurance: MEDICARE A & B Discharge Planning Comments: CM SPOKE WITH [facility] THIS MORNING AND THEY WILL DELIVER NEBULIZER TO PATIENT IN HER ROOM AROUND 11AM TODAY. CM WILL FOLLOW AND ASSIST NEEDED WITH DC PLANNING/NEEDS. Yarn Finisher: Ilana Echeverria DCP- Discharge Planning Updated by [id number]: Ilana Echeverria on 06/29/18 1:[address] Patient Name: CONSTANCE MOHAMUD Admission Status: ER Accout number: [id number] Admission Date: 06-28-2018 : 1940 Admission Diagnosis: Attending: SABINE HUTSON Current LOS: 1 Anticipated DC Date: Planned Disposition: Primary Insurance: MEDICARE A & B Discharge Planning Comments: WALK TEST DONE ON PATIENT, SHE DOES NOT MEET CRITERIA FOR 02. CM SPOKE WITH AND FAXED DOCS TO [facility] FOR NEBULIZER. CM WILL CALL THEM WITH A DISCHARGE DATE. Yarn Finisher: Ilana Echeverria DCPIA - Discharge Planning Initial Assessment Updated by [id number]: Ilana Echeverria on 06/29/18 8:57 am * Is the patient Alert and Oriented? Yes * PCP CARYL * Pharmacy [facility] * Preadmission Environment Home Alone * ADLs Independent * Equipment Walker * List name and contact numbers for known caregivers / representatives who currently or will assist patient after discharge: FERMIN GANDHI, * Community resources currently utilized None * Additional services required to return to the preadmission environment? Yes * Can the patient safely return to the preadmission environment? Yes * Has this patient been hospitalized within the prior 30 days at any hospital? Yes Coverage Notice Reviewer: [id number] Josette Echeverria Notice Issued Date-Time: 06/30/2018 10:07 Notice Type: Patient Choice Letter Notice Delivered To: Patient Relationship to Patient: Self Immigration Case Worker Name: Delivery Method: HAND - Hand Delivered Shereen Days: Prior Verbal Notification: Recipient Understood Notice: Yes Recipient Signature: Yes Med Rec Note Co-signed by Attending: Coverage Notice Comment: [facility], CHICA Reviewer: [id number] Josette Echeverria Notice Issued Date-Time: 06/29/2018 9:00 Notice Type: Patient Choice Letter Notice Delivered To: Patient Relationship to Patient: Self Immigration Case Worker Name: Delivery Method: HAND - Hand Delivered Shereen Days: Prior Verbal Notification: Recipient Understood Notice: Yes Recipient Signature: Yes Med Rec Note Co-signed by Attending: Coverage Notice Comment: KAYLEE OLIVER Reviewer: [id number] Josette Echeverria Notice Issued Date-Time: 06/28/2018 15:57 Notice Type: Medicare Outpatient Observation Notice Notice Delivered To: Patient Relationship to Patient: Self Immigration Case Worker Name: Delivery Method: HAND - Hand Delivered Shereen Days: Prior Verbal Notification: Recipient Understood Notice: Yes Recipient Signature: Yes Med Rec Note Co-signed by Attending: Coverage Notice Comment: Reviewer: [id number] Josette Echeverria Notice Issued Date-Time: 06/29/2018 12:02 Notice Type: IM Discharge Notice Notice Delivered To: Patient Relationship to Patient: Self Immigration Case Worker Name: Delivery Method: HAND - Hand Delivered Shereen Days: Prior Verbal Notification: Recipient Understood Notice: Yes Recipient Signature: Yes Med Rec Note Co-signed by Attending: Coverage Notice Comment: Last DP export: 06/30/18 9:24 a Patient Name: CONSTANCE MOHAMUD Page [id number] at 1047 All edits/amendments must be made on the electronic document DICTATION DATE: 06/30/18 1046 SET UP MACHINIST: CHECO 06/30/18 1046 RPT#: [id number] DC DATE: STATUS: ADM IN [facility] [address] [place] [address] END OF REPORT
[2018-06-30] MEDS ORDERED: BROVANA15 MCG/2 M INH (11:39)
[2018-06-30] MEDS ORDERED: ATROVENT 0.02%2.5 ML UPD (11:40)
[2018-06-30] MEDS ORDERED: PULMICORT0.5 MG/21 INH (11:40)
[2018-06-30] MEDS ORDERED: ALBUTEROL2.5 MG/3 M INH (11:41)
--- NOTE | 2018-06-30 12:23 | NUR ---
PROVIDED VERBAL AND WRITTEN DISCHARGE TEACHING TO PT, WHO VERBALIZED UNDERSTANDING REGARDING TEACHING. D/C LT FA IV WITH TIP INTACT. PRESCRIPTIONS CALLED IN TO [facility]. PT WAITING ON RIDE, WILL NOTIFY THIS NURSE WHEN READY FOR WHEELCHAIR.
[2018-06-30] MEDS ORDERED: SINGULAIR10 MG PO (12:45)
[2018-06-30] MEDS ORDERED: ALBUTEROL1.25 MG/3 INH (12:46)
--- NOTE | 2018-06-30 12:48 | NUR ---
PT LEFT UNIT VIA WHEELCHAIR. WITH ALL BELONGINGS, NAD NOTED.
--- NOTE | 2018-06-30 14:33 | MORECARE ---
CASE MANAGEMENT DISCHARGE SUMMARY PATIENT: CONSTANCE MOHAMUD ESTUARDO UNIT: [id number] ADM DATE: 06/28/18 AGE: 78 : 41 SEX: F ROOM/BED: D.1204 AUTHOR: THONG GARCIA PHYSICIAN: REFERRING PHYSICIAN: SABINE HUTSON MD DATE OF SERVICE: 06/30/18 Discharge Plan Patient Name: CONSTANCE MOHAMUD Facility: [facility]:[place] : 1940 Planned Disposition: Home Health Service Anticipated Discharge Date: 06/30/18 Discharge Date: 06/30/2018 Expected LOS: 2 Initial Reviewer: [id number] Initial Review Date: 06/29/2018 Generated: 06/30/18 3:33 pm Comments DCP- Discharge Planning Updated by [email or web address]: Ilana Echeverria on 06/30/18 9:[address] Patient Name: CONSTANCE MOHAMUD Admission Status: ER Accout number: [id number] Admission Date: 06-28-2018 : 1940 Admission Diagnosis: Attending: SABINE HUTSON Current LOS: 2 Anticipated DC Date: Planned Disposition: Primary Insurance: MEDICARE A & B Discharge Planning Comments: PATIENT DECIDED SHE WANTS WITH [facility]ARE [facility], CONTACTED AND DOCUMENTS FAXED. WAITING ON PT EVAL AT THIS TIME. Rehab Liaison: Ilana Echeverria Appended by Ilana Echeverria on 06/30/2018 10:45 SUPERVISOR TELEPHONE ANSWERING SERVICE: SPOKE WITH [facility] AND THEY WILL SEE THE PATIENT TOMORROW AT HER HOME. WHEN THE NEBULIZER ARRIVES HERE AT THE HOSPITAL, ALAN FROM IS GOING TO COME AND SHOW HER HOW TO USE IT. CM WILL FOLLOW AND ASSIST NEEDED. DCP- Discharge Planning Updated by [id number]: Ilana Echeverria on 06/30/18 8:[address] Patient Name: CONSTANCE MOHAMUD Admission Status: ER Accout number: [id number] Admission Date: 06-28-2018 : 1940 Admission Diagnosis: Attending: SABINE HUTSON Current LOS: 2 Anticipated DC Date: Planned Disposition: Primary Insurance: MEDICARE A & B Discharge Planning Comments: CM SPOKE WITH [facility] THIS MORNING AND THEY WILL DELIVER NEBULIZER TO PATIENT IN HER ROOM AROUND 11AM TODAY. CM WILL FOLLOW AND ASSIST NEEDED WITH DC PLANNING/NEEDS. Rehab Liaison: Ilana Echeverria DCP- Discharge Planning Updated by [id number]: Ilana Echeverria on 06/29/18 1:[address] Patient Name: CONSTANCE MOHAMUD Admission Status: ER Accout number: [id number] Admission Date: 06-28-2018 : 1940 Admission Diagnosis: Attending: SABINE HUTSON Current LOS: 1 Anticipated DC Date: Planned Disposition: Primary Insurance: MEDICARE A & B Discharge Planning Comments: WALK TEST DONE ON PATIENT, SHE DOES NOT MEET CRITERIA FOR 02. CM SPOKE WITH AND FAXED DOCS TO [phone] FOR NEBULIZER. CM WILL CALL THEM WITH A DISCHARGE DATE. Rehab Liaison: Ilana Echeverria DCPIA - Discharge Planning Initial Assessment Updated by [email or web address]: Ilana Echeverria on 06/29/18 8:57 am * Is the patient Alert and Oriented? Yes * PCP CARYL * Pharmacy [facility] * Preadmission Environment Home Alone * ADLs Independent * Equipment Walker * List name and contact numbers for known caregivers / representatives who currently or will assist patient after discharge: FERMIN GANDHI, * Community resources currently utilized None * Additional services required to return to the preadmission environment? Yes * Can the patient safely return to the preadmission environment? Yes * Has this patient been hospitalized within the prior 30 days at any hospital? Yes Coverage Notice Reviewer: [id number] Josette Echeverria Notice Issued Date-Time: 06/28/2018 15:57 Notice Type: Medicare Outpatient Observation Notice Notice Delivered To: Patient Relationship to Patient: Self Environmental Educator Name: Delivery Method: HAND - Hand Delivered Shereen Days: Prior Verbal Notification: Recipient Understood Notice: Yes Recipient Signature: Yes Med Rec Note Co-signed by Attending: Coverage Notice Comment: Reviewer: [id number] Josette Echeverria Notice Issued Date-Time: 06/29/2018 9:00 Notice Type: Patient Choice Letter Notice Delivered To: Patient Relationship to Patient: Self Environmental Educator Name: Delivery Method: HAND - Hand Delivered Shereen Days: Prior Verbal Notification: Recipient Understood Notice: Yes Recipient Signature: Yes Med Rec Note Co-signed by Attending: Coverage Notice Comment: KAYLEE OLIVER Reviewer: [id number] Josette Echeverria Notice Issued Date-Time: 06/29/2018 12:02 Notice Type: IM Discharge Notice Notice Delivered To: Patient Relationship to Patient: Self Environmental Educator Name: Delivery Method: HAND - Hand Delivered Shereen Days: Prior Verbal Notification: Recipient Understood Notice: Yes Recipient Signature: Yes Med Rec Note Co-signed by Attending: Coverage Notice Comment: Reviewer: [id number] Josette Echeverria Notice Issued Date-Time: 06/30/2018 10:07 Notice Type: Patient Choice Letter Notice Delivered To: Patient Relationship to Patient: Self Environmental Educator Name: Delivery Method: HAND - Hand Delivered Shereen Days: Prior Verbal Notification: Recipient Understood Notice: Yes Recipient Signature: Yes Med Rec Note Co-signed by Attending: Coverage Notice Comment: [facility], CHICA Last DP export: 06/30/18 9:47 a Patient Name: CONSTANCE MOHAMUD Page [id number] at 1433 All edits/amendments must be made on the electronic document DICTATION DATE: 06/30/181431 LAMINATING MACHINE TENDER: CHECO 06/30/18 1432 RPT#: [id number] DC DATE:06/30/18 STATUS: DIS IN [facility] [address] [place] [address] END OF REPORT
== END 2018-06-30 12:52 | disposition home health service (06) | DRG 202 ==
LOC: D.ER 09:29 → D.EDHOLD 11:34 → D.M3 11:34 → OBSVTIME 11:34 → D.M3 12:53
PROVIDERS: Family Medicine; ADMIT Family Medicine
DX: J20.9 Acute bronchitis, unspecified (principal); J44.1 Chronic obstructive pulmonary disease with (acute) exacerbation; J44.0 Chronic obstructive pulmonary disease with (acute) lower respiratory infection; I25.10 Atherosclerotic heart disease of native coronary artery without angina pectoris; M51.9 Unspecified thoracic, thoracolumbar and lumbosacral intervertebral disc disorder; H40.9 Unspecified glaucoma; J30.9 Allergic rhinitis, unspecified; N18.9 Chronic kidney disease, unspecified; D64.9 Anemia, unspecified; Z95.0 Presence of cardiac pacemaker; R00.0 Tachycardia, unspecified; F17.200 Nicotine dependence, unspecified, uncomplicated; I27.20 Pulmonary hypertension, unspecified; I07.1 Rheumatic tricuspid insufficiency

== ENCOUNTER → 2018-08-04 12:26 | Outpatient (CLI) | payer MEDICARE, BC ==
[2018-06-28 12:25] VITALS: BMI 18.9
[~2018-08-04 12:26] MED LIST changes: +ALBUTEROL SULF8.5 GM POINH; +ALBUTEROL1.25 MG/3 INH; +ALBUTEROL2.5 MG/3 M INH; +ATROVENT 0.02%2.5 ML UPD; +BROVANA15 MCG/2 M INH; +MEDROL DOSE PACK4 MG PO; +OMNICEF300 MG PO; +PULMICORT0.5 MG/21 INH; +SINGULAIR10 MG PO; +TRUSOPT 2 % OPT10 ML EACH EYE
== END | disposition home or self-care (01) ==
LOC: D.RT 09:00
PROVIDERS: ATTEND Internal Medicine Pulmonary Disease
DX: J44.1 Chronic obstructive pulmonary disease with (acute) exacerbation (principal)

== ENCOUNTER → 2019-06-02 10:09 | Outpatient (CLI) | payer MEDICARE, BC ==
[2018-06-28 12:25] VITALS: BMI 18.9
--- NOTE | 2019-06-06 08:28 | EC ---
PATIENT:CONSTANCE MOHAMUD DATE OF SERVICE: 06/02/19 SEX: F MEDICAL RECORD: [id number] DATE OF : [birth year] LOCATION:D.HCC AGE OF PATIENT: 79 ADMISSION DATE: 06/02/19 REFERRING PHYSICIAN: INTERPRETING PHYSICIAN: MILTON DUFFY MD ECHOCARDIOGRAM REPORT ECHO CHARGES 4 ECHO COMPLETE Date: 06/02/19 CLINICAL DIAGNOSIS: HTN/MR/TR HX PACEMAKER/RBBB ECHOCARDIOGRAPHIC MEASUREMENTS (adult normal given) AC root (d.<3.7cm) 2.2 cm LV Septum d (<1.2 cm> 0.90 cm Valve Excursion 1.0 cm LV Septum (systole) 1.2 cm Left Atria (s.<4.0cm> 2.4 cm LVPW d(<1.2cm) 1.2 cm RV (d.<2.3cm) 3.1 cm LVPW (sytole) 1.4 cm LV diastole(<5.6CM) 4.1 cm MV E-F(>70mm/sec) cm LV systole 2.7 cm LVOT Diameter 1.5 cm MV exc.(>10mm) 1.3 cm Est.ejection fraction (50-75%) % DOPPLER: LVIT cm/sec A 82.0 cm/sec E 55.0 cm/sec LA cm/sec RVSP 37 mmHg LVOT 103 cm/sec AOP1/2T m/s Asc. Ao 122 cm/sec RVOT 96 cm/sec RA cm/sec PA 123 cm/sec AV Gradient Peak 5.95 mmHg AV Mean 3.14 mmHg AV Area 1.6 cm MV Gradient Peak 4.61 mmHg MV Mean 1.71 mmHg MV Area cm COMMENTS: Yarn Bleaching Machine Operator: 2 REBECCA GARCIA Building Coordinator: 3 Dr. Melara TAPE# PACS Pericardial Effusion N DATE OF SERVICE: Adequate 2D, color flow imaging, spectral Doppler, and M-Mode. No LVH. LV internal dimension is normal. Wall motion is normal. EF is greater than or equal to 55%. Aortic valve is tricuspid. No evidence of stenosis by Doppler interrogation. Left atrium normal at 3.4 cm. Mitral valve shows no prolapse. Trace MR. Right-sided chamber size is grossly normal. Mild TR. TRANSINT:[id number] Voice Confirmation ID: [id number] DOCUMENT ID: [id number] ECHOCARDIOGRAM REPORT [id number] CONSTANCE MOHAMUD,MILTON Morgan MD at 0828 CC: [id number] DICTATION DATE: 06/03/19 1449 CONSUMER SERVICES CONSULTANT: 06/03/19 2308 DEP CLI 06/02/19 [place] [id number] [place] [id number]
== END | disposition home or self-care (01) ==
LOC: D.HCCECHO 10:09
PROVIDERS: ATTEND Internal Medicine Interventional Cardiology
DX: I10 Essential (primary) hypertension (principal)

== ENCOUNTER → 2019-11-14 12:44 | Outpatient (CLI) | payer MEDICARE, BC ==
[2018-06-28 12:25] VITALS: BMI 18.9
== END | disposition home or self-care (01) ==
LOC: D.RT 09-14 09:00 → D.CT 09-14 09:30 → D.RT 12:44
PROVIDERS: ATTEND Internal Medicine Pulmonary Disease
DX: J44.9 Chronic obstructive pulmonary disease, unspecified (principal)